=== PATIENT | female | born 1955 | race Caucasian/White ===

== ENCOUNTER 2017-03-09 07:03 | Day surgery (SDC) | payer OTHER, MEDICARE ==
[~2017-03-09 07:03] MED LIST: Lactated Ringers 1,000 ML IV SCH; Lidocaine 1% 4 ML ONE; Lidocaine 1%/Sod Bicarbonate in NS 8.4% 1 ML Syringe PRN; Propofol 200 MG/20 ML SDV ONE; Sodium Chloride 0.9% 10 ML Syringe FLUSH PRN; fentaNYL 100 MCG/2 ML SDV ONE
[2017-03-09] MEDS ORDERED: Midazolam 1 MG/ML 2 ML SDV ONE ×2 (07:04→08:17)
--- NOTE | 2017-03-09 07:18 | PCM.PREANE ---
Preanesthetic Assessment - Anesthesia/Transfusion/Family Hx Anesthesia History: Prior Anesthesia Reaction Type of Anesthesia Reaction: Excessive Nausea/Vomiting Family History of Anesthesia Reaction: No Transfusion History: No Prior Transfusion(s) Intubation History: Unknown - Review of Systems General: Fever (low grade fever noted per patient for months), Weakness, Fatigue , Malaise, Appetite (loss of appetite and weight loss noted) Pulmonary: No Symptoms (smokes 1pack/day times 38 years.) Cardiovascular: No Symptoms (atherosclerosis, epigastric pain noted in the past. ) Gastrointestinal: No symptoms (history of gastritis), Decreased appetite Neurological: No Symptoms (fibromyalgia), Headache (migraines noted) Other: Reports: None (history of back pain), Easy Bruising, Diabetes ( borderline DM, on no meds at this time.), Sinus Problem, Neck Pain, Depression, Anxiety - Physical Assessment NPO Status Date: 03/08/17 NPO Status Time: 20:30 Pulse: 103 O2 Sat by Pulse Oximetry: 93 Respiratory Rate: 18 Blood Pressure: 115/50 Temperature: 36.0 C Height: 1.73 m Weight: 59 kg ASA Class: 2 Mental Status: Alert & Oriented x3 Airway Class: Mallampati = 2 Dentition: Reports: Normal Dentition, [place](s), [place] Thyro-Mental Finger Breadths: 3 Mouth Opening Finger Breadths: 3 ROM/Head Extension: Full Lungs: Clear to auscultation, Normal respiratory effort Cardiovascular: Regular Rate, Regular Rhythm, No Murmurs - Imaging/EKG Impressions: Unremarkable stress test noted on 02/19/2017 - Allergies Allergies/Adverse Reactions: Allergies Allergy/AdvReac Type Severity Reaction Status Date / Time chlorpheniramine Allergy Cannot Verified 03/08/17 14:22 [From CapCof] Remember clindamycin Allergy Hives Verified 03/08/17 14:22 codeine Allergy Itching Verified 03/08/17 14:22 erythromycin base Allergy Itching Verified 03/08/17 14:22 Iodinated Contrast- Oral and Allergy Hives Verified 03/08/17 14:22 IV Dye [Iodinated Contrast Media - IV Dye] peanut Allergy Redness Verified 03/08/17 14:22 penicillin Allergy Hives Verified 03/08/17 14:22 phenylephrine [From [employer]Cof] Allergy Cannot Verified 03/08/17 14:22 Remember poppyseed oil Allergy Swollen Verified 03/08/17 14:22 Tongue - Anesthesia Plan Pre-Op Medication Ordered: None - Acknowledgements Anesthesia Type Planned: MAC Pt an Appropriate Candidate for the Planned Anesthesia: Yes Alternatives and Risks of Anesthesia Discussed w Pt/Guardian: Yes Pt/Guardian Understands and Agrees with Anesthesia Plan: Yes PreAnesthesia Questionnaire HEENT History: Reports: Other (See Below) Other HEENT History: dry eyes Cardiovascular History: Reports: Other (See Below) Other Cardiovascular History: athersclerosis, atypical chest pain Respiratory History: Reports: Other (See Below) Other Respiratory History: dyspnea Gastrointestinal History: Reports: Hiatal Hernia, Other (See Below) Other Gastrointestinal History: gastric pain, R groin pain, liver cyst, post op nausea and vomiting 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: Musculoskeletal History: Reports: Arthritis, Fibromyalgia, Osteoarthritis, Other (See Below) Other Musculoskeletal History: bulging disc, lumbar radiculopathy Neurological History: Reports: None Psychiatric History: Reports: Anxiety, Depression Endocrine/Metabolic History: Reports: Other (See Below) Other Endocrine/Metabolic History: borderline diabetic Hematologic History: Reports: None Immunologic History: Reports: None Oncologic (Cancer) History: Reports: None Dermatologic History: Reports: None - Infectious Disease History Infectious Disease History: Reports: Chicken Pox, Measles, Mumps, Shingles - Past Surgical History Head Surgeries/Procedures: HEENT Surgical History: Reports: Cataract Surgery, Naso-Sinus Surgery GI Surgical History: Reports: Appendectomy, Cholecystectomy, Colonoscopy, EGD, Hernia Repair/Other Female Surgical History: Reports: Section, Hysterectomy, Oophorectomy Neurological Surgical History: Reports: None Musculoskeletal Surgical History: Reports: Knee Replacement Dermatological Surgical History: Reports: None - SUBSTANCE USE Smoking Status *Q: Current Every Day Smoker Tobacco Use Within Last Twelve Months: Cigarettes Days Per Week of Alcohol Use: 0 Number of Drinks Per Day: 0 Total Drinks Per Week: 0 Recreational Drug Use History: No - HOME MEDS Home Medications: Home Meds Diazepam [Valium] 5 mg PO BID 03/18/15 [History] Hydrocodone/Acetaminophen [Lortab 5-325 mg Tablet] 1 tab PO DAILY 07/31/15 [ History] traZODone 100 mg PO DAILY 07/31/15 [History] Polymyxin B/Trimethoprim [PolyTrim Ophth Soln] 1 - 2 drop EYELF QID #1 bottle [Rx] Escitalopram Oxalate [Lexapro] 5 mg PO DAILY 08/09/16 [History] - CURRENT (IN HOUSE) MEDS Current Meds: Current Medications Lactated Ringer's (Ringers, Lactated) 1,000 mls @ 125 mls/hr IV ASDIRECTED PAL Stop: 03/09/17 23:00 Lidocaine/Sodium Bicarbonate (Buffered Lidocaine 1% In Ns 8.4%) 0.25 ml .XX ONETIME PRN PRN Reason: Prior to IV Start Stop: 03/09/17 18:00 Sodium Chloride (Saline Flush) 10 ml FLUSH ASDIRECTED PRN PRN Reason: Keep Vein Open Stop: 03/09/17 18:00 Discontinued Medications Fentanyl (Sublimaze) Confirm Administered Dose 100 mcg .ROUTE .STK-MED ONE Stop: 03/09/17 07:04 Lidocaine HCl (Xylocaine-Mpf 1%) Confirm Administered Dose 4 mls @ as directed .ROUTE .STK-MED ONE Stop: 03/09/17 07:04 Midazolam HCl (Versed 1 Mg/Ml) Confirm Administered Dose 2 mg .ROUTE .STK-MED ONE Stop: 03/09/17 07:05 Propofol (Diprivan 20 Ml) Confirm Administered Dose 200 mg .ROUTE .STK-MED ONE Stop: 03/09/17 07:04
[2017-03-09] MEDS ORDERED: Ondansetron 4 MG/2 ML SDV IVPUSH PRN (07:59)
--- NOTE | 2017-03-09 08:48 | PCM48HPAN ---
Post Anesthesia Note - EVALUATION WITHIN 48HRS OF ANESTHETIC Vital Signs in Normal Range: Yes Patient Participated in Evaluation: Yes Respiratory Function Stable: Yes Airway Patent: Yes Cardiovascular Function Stable: Yes Hydration Status Stable: Yes Pain Control Satisfactory: Yes Nausea and Vomiting Control Satisfactory: Yes Mental Status Recovered: Yes
[2017-03-09 08:51] VITALS: BP 90/54
--- NOTE | 2017-03-09 09:00 | PCM.OPNOTE ---
- General Post-Op/Procedure Note Date of Surgery/Procedure: 03/09/17 Operative Procedure(s): Diagnostic EGD with cold forceps biopsy, diagnostic colonoscopy with cold forceps polypectomy Pre Op Diagnosis: Abdominal pain, bloating, history of incomplete colonoscopy Post-Op Diagnosis: Gastritis, diverticulosis, colon polyp Anesthesia Technique: MAC Primary Surgeon: Peace Bolden Anesthesia Provider: Bita Cam Pathology: 1. Small bowel biopsy 2. Antral biopsy 3. Distal esophageal biopsy 4. Ascending colon polyp Fluid Replacement, Intraop: 700 (mL crystalloid ) EBL in mLs: 1 Complications: None Condition: Good Free Text/Narrative:: INDICATION FOR PROCEDURE: The patient is a 61-year-old woman who was referred to me by Donell Sal PA-C for evaluation for abdominal pain. She does have a history of incomplete colonoscopy. Performing a colonoscopy and EGD and the associated risks of the procedures had been discussed with the patient. The patient found these risks acceptable and agreed to proceed. DESCRIPTION OF PROCEDURE: The patient was taken to the operating room and placed in the left lateral decubitus position. After induction of adequate sedation, a bite block was placed. A standard Olympus gastroscope was inserted into the oropharynx and guided down the esophagus without difficulty. The gastroesophageal junction was appreciated at 38 cm from the teeth. There was no evidence of stricture or esophageal ulcerations. The scope was advanced into the stomach, and there was gastritis. The scope was passed into the proximal jejunum and the duodenum which were unremarkable. There were no petechiae or ulcerations. The proximal jejunum was grossly normal in appearance. Multiple cold forceps biopsies were obtained of the proximal jejunum and duodenum. The scope was withdrawn into the antrum, and additional cold forceps biopsies were obtained. The remainder of the gastric body was examined, and there were no other abnormalities. The scope was retroflexed, and there was no evidence of hiatal hernia. The scope was straightened and withdrawn to the GE junction. Additional cold forceps biopsies were obtained of the distal esophagus. The scope was withdrawn through the remainder of the esophagus and no further abnormalities were noted. The posterior oropharynx was grossly normal in appearance. The scope was fully withdrawn and attention was then turned to the colonoscopy. A digital rectal exam was performed which was unremarkable. An adult Olympus colonoscope was inserted into the rectum and guided under direct visualization to the appendiceal orifice and ileocecal valve. The scope was then slowly withdrawn through the colon. The quality of the prep was good. There was no evidence of angiodysplasias. There was a small sessile polyp in the ascending colon. It was removed using cold forceps. There was sigmoid diverticulosis, it was moderate. The scope was withdrawn into the rectum and retroflexed. There was no significant prominence of the patient's internal hemorrhoids. The scope was straightened, the colon was desufflated, and the scope was withdrawn. The patient was awakened from sedation and transferred to the recovery room in stable condition having tolerated the procedure well. POSTOPERATIVE PLAN: I discussed with the patient my intraoperative findings and recommendations. The patient will follow up in approximately 7-10 days to discuss pathology and how their symptoms are progressing. The patient is to continue Protonix and Carafate. I have asked the patient to follow a GERD\ gastritis diet. The patient is to call with any worsening of symptoms or questions prior to the appointment.
== END 2017-03-09 09:30 | disposition home or self-care (01) ==
LOC: JD.SDS 07:03
PROVIDERS: ATTEND Surgery
DX: K29.50 Unspecified chronic gastritis without bleeding (principal); D12.2 Benign neoplasm of ascending colon; K20.9 Esophagitis, unspecified; I25.10 Atherosclerotic heart disease of native coronary artery without angina pectoris; Z98.890 Other specified postprocedural states; F41.9 Anxiety disorder, unspecified; Z88.0 Allergy status to penicillin; Z88.1 Allergy status to other antibiotic agents; Z88.8 Allergy status to other drugs, medicaments and biological substances; Z91.010 Allergy to peanuts; Z91.041 Radiographic dye allergy status; F17.210 Nicotine dependence, cigarettes, uncomplicated; Z79.899 Other long term (current) drug therapy; Z72.0 Tobacco use; Z90.49 Acquired absence of other specified parts of digestive tract; E11.9 Type 2 diabetes mellitus without complications
CPT/HCPCS: 43239; 45380; 88305; J2250; J3010; J7120; 00810; J2704

== ENCOUNTER 2018-09-08 12:08 | Emergency (ER) | payer OTHER, MEDICARE ==
[2018-09-08 12:21] VITALS: BP 154/89
[2018-09-08] MEDS ORDERED: Lactated Ringers 500 ML IV ONE (12:25)
--- NOTE | 2018-09-08 12:56 | EDM.PDOC ---
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 She rinsed her eye out but she still has some burning and her vision is blurry. She does not wear glasses or contacts. Onset: Sudden Duration: Minutes: Location: Reports: Other (Left eye) Quality: Reports: Burning Severity: Moderate Improves with: Reports: None Worsens with: Reports: None Associated Symptoms: Reports: No Other Symptoms Left Eye Pain Score (Numeric/FACES): 8 - Related Data Allergies Allergy/AdvReac Type Severity Reaction Status Date / Time chlorpheniramine Allergy Cannot Verified 09/08/18 12:16 [From CapCof] Remember clindamycin Allergy Hives Verified 09/08/18 12:16 codeine Allergy Itching Verified 09/08/18 12:16 erythromycin base Allergy Itching Verified 09/08/18 12:16 Iodinated Contrast- Oral and Allergy Hives Verified 09/08/18 12:16 IV Dye [Iodinated Contrast Media - IV Dye] peanut Allergy Redness Verified 09/08/18 12:16 penicillin Allergy Hives Verified 09/08/18 12:16 phenylephrine [From [employer]Cof] Allergy Cannot Verified 09/08/18 12:16 Remember poppyseed oil Allergy Swollen Verified 09/08/18 12:16 Tongue Home Meds: Home Meds Diazepam [Valium] 5 mg PO BID 03/18/15 [History] Hydrocodone/Acetaminophen [Lortab 5-325 mg Tablet] 1 tab PO DAILY 07/31/15 [ History] traZODone 100 mg PO DAILY 07/31/15 [History] Polymyxin B/Trimethoprim [PolyTrim Ophth Soln] 1 - 2 drop EYELF QID #1 bottle [Rx] Escitalopram Oxalate [Lexapro] 5 mg PO DAILY 08/09/16 [History] Orphenadrine [Norflex] 100 mg PO DAILY PRN 03/09/17 [History] Past Medical History HEENT History: Reports: Other (See Below) Other HEENT History: dry eyes Cardiovascular History: Reports: Other (See Below) Other Cardiovascular History: athersclerosis, atypical chest pain Respiratory History: Reports: Other (See Below) Other Respiratory History: dyspnea Gastrointestinal History: Reports: Hiatal Hernia, Other (See Below) Other Gastrointestinal History: gastric pain, R groin pain, liver cyst, post op nausea and vomiting 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: Musculoskeletal History: Reports: Arthritis, Fibromyalgia, Osteoarthritis, Other (See Below) Other Musculoskeletal History: bulging disc, lumbar radiculopathy Neurological History: Reports: None Psychiatric History: Reports: Anxiety, Depression Endocrine/Metabolic History: Reports: Other (See Below) Other Endocrine/Metabolic History: borderline diabetic Hematologic History: Reports: None Immunologic History: Reports: None Oncologic (Cancer) History: Reports: None Dermatologic History: Reports: None - Infectious Disease History Infectious Disease History: Reports: Chicken Pox, Measles, Mumps, Shingles - Past Surgical History HEENT Surgical History: Reports: Cataract Surgery, Naso-Sinus Surgery GI Surgical History: Reports: Appendectomy, Cholecystectomy, Colonoscopy, EGD, Hernia Repair/Other Female Surgical History: Reports: Section, Hysterectomy, Oophorectomy Neurological Surgical History: Reports: None Musculoskeletal Surgical History: Reports: Knee Replacement Dermatological Surgical History: Reports: None Social & Family History - Family History Family Medical History: Noncontributory - Tobacco Use Smoking Status *Q: Unknown Ever Smoked - Caffeine Use Caffeine Use: Reports: Coffee ED ROS GENERAL - Review of Systems Review Of Systems: See Below Constitutional: Reports: No Symptoms HEENT: Reports: Eye Pain (Burning of her left eye and blurred vision) Respiratory: Reports: No Symptoms Cardiovascular: Reports: No Symptoms Endocrine: Reports: No Symptoms GI/Abdominal: Reports: No Symptoms : Reports: No Symptoms Musculoskeletal: Reports: No Symptoms ED EXAM GENERAL W FULL EYE - Physical Exam Exam: See Below Exam Limited By: No Limitations General Appearance: Alert, No Apparent Distress Eye Exam: Left Eye: Conjunctival Injection, Bilateral Eye: EOMI, PERRL Conjunctiva & Sclera: Left: Discharge Pupillary Reaction: Bilateral: Brisk Respiratory/Chest: No Respiratory Distress Course - Vital Signs Last Recorded V/S: Last Vital Signs Temp 98.2 F 09/08/18 12:19 Pulse 99 01/10/19 12:19 Resp 18 09/08/18 12:19 BP 154/89 H 09/08/18 12:19 Pulse Ox 99 09/08/18 12:19 - Orders/Labs/Meds Orders: Active Orders 24 hr Category Date Time Status Lactated Ringers [Ringers, Lactated] 500 ml Med 09/08/18 12:25 Active IV .BOLUS Medication Orders Lactated Ringer's (Ringers, Lactated) 500 mls @ 500 mls/hr IV .BOLUS ONE Stop: 09/08/18 13:24 Last Admin: 09/08/18 12:33 Dose: 500 mls/hr Meds: Medications Generic Name Dose Route Start Last Admin Trade Name Dago PRN Reason Stop Dose Admin Lactated Ringer's 500 mls @ 500 mls/hr 09/08/18 12:25 09/08/18 12:33 Ringers, Lactated IV 09/08/18 13:24 500 mls/hr .BOLUS ONE Administration - Re-Assessments/Exams Free Text/Narrative Re-Assessment/Exam: 09/08/18 13:05 I ordered LR 500ml bolus through the vic lens. She felt better after that. The PH of her tears was 7. I then gave her some proparacein and put flurress in her eye. I did not see any abrasion or burn to the cornea. I called poison control and they would do nothing different. I will discharge her home. Departure - Departure Time of Disposition: 13:10 Disposition: Home, Self-Care 01 Condition: Good Clinical Impression: Chemical burn of eye - Discharge Information *PRESCRIPTION DRUG MONITORING PROGRAM REVIEWED*: No *COPY OF PRESCRIPTION DRUG MONITORING REPORT IN PATIENT ROLAND: No Referrals: Aminata Ricardo, [employer] [Primary Care Provider] - Forms: ED Department Discharge Additional Instructions: Take tylenol or motrin for pain. If you do not get better in a few days or if you get worse follow up with us of one of the optometrists in [facility]. - My Orders Last 24 Hours: My Active Orders 09/08/18 12:25 Lactated Ringers [Ringers, Lactated] 500 ml IV .BOLUS - Assessment/Plan Last 24 Hours: My Active Orders 09/08/18 12:25 Lactated Ringers [Ringers, Lactated] 500 ml IV .BOLUS
== END 2018-09-08 13:20 | disposition home or self-care (01) ==
LOC: JD.ED 12:08
DX: T65.891A Toxic effect of other specified substances, accidental (unintentional), initial encounter (principal); T26.92XA Corrosion of left eye and adnexa, part unspecified, initial encounter; F41.9 Anxiety disorder, unspecified; F32.9 Major depressive disorder, single episode, unspecified; Z88.5 Allergy status to narcotic agent; Z88.1 Allergy status to other antibiotic agents; Z79.899 Other long term (current) drug therapy; Z88.8 Allergy status to other drugs, medicaments and biological substances; Y92.002 Bathroom of unspecified non-institutional (private) residence as the place of occurrence of the external cause
CPT/HCPCS: 99283; J7120; 65220

== ENCOUNTER 2018-11-08 16:03 | Emergency (ER) | payer OTHER, MEDICARE ==
[2018-11-08 16:25] VITALS: BP 146/74
--- NOTE | 2018-11-08 16:45 | EDM.PDOCBH ---
ED HPI GENERAL MEDICAL PROBLEM - General Chief Complaint: Behavioral/Psych Stated Complaint: PANIC ATTACK Time Seen by Provider: 11/08/18 16:28 Source of Information: Reports: Patient, RN Notes Reviewed History Limitations: Reports: No Limitations - History of Present Illness INITIAL COMMENTS - FREE TEXT/NARRATIVE: Patient is a 63-year-old female who presents to the ED for the evaluation of anxiety like symptoms. She states that she has a history of anxiety and was on diazepam for this. She states that around 3 weeks ago the pharmacy and her primary care providers cut her off from the diazepam as she also takes oxycodone for back pain they were worried about the additive effects and that she might be too sedated with this. They did not provide her with an alternative. She states that she feels some of the similar symptoms that she has had previous with her anxiety. She feels that her insides are racing, her heart is racing. She says that she has increased stress as of late due to taking care of her mother who has Alzheimer's and dementia. She states that she makes meals for her regularly and has to take them to her and this causes stress. She also notes that her had shoulder surgery so she is taking care of him as well. She states that she takes 20 mg Lexapro daily and trazodone for sleep, she takes Percocet 06/01/25 for her chronic back pain she states that she may take up to 4 tabs daily but tries not to do this. He also states that she has extensive back pain/surgery history. She notes that her pain doctor in [place] has written a note to her primary care provider stating that she does need the diazepam for her anxiety symptoms however her primary care provider is still will not provide her with this as they feel it will be too sedating for her. She notes that she sees Kermit Ricardo and Donell Sal. She further denies any chest pain but has some mild shortness of breath symptoms. Bilateral Lower Back Pain Score (Numeric/FACES): 5 - Related Data Allergies Allergy/AdvReac Type Severity Reaction Status Date / Time chlorpheniramine Allergy Cannot Verified 09/08/18 12:16 [From [employer]] Remember clindamycin Allergy Hives Verified 09/08/18 12:16 codeine Allergy Itching Verified 09/08/18 12:16 erythromycin base Allergy Itching Verified 09/08/18 12:16 Iodinated Contrast- Oral and Allergy Hives Verified 09/08/18 12:16 IV Dye [Iodinated Contrast Media - IV Dye] peanut Allergy Redness Verified 09/08/18 12:16 penicillin Allergy Hives Verified 09/08/18 12:16 phenylephrine [From [employer]] Allergy Cannot Verified 09/08/18 12:16 Remember poppyseed oil Allergy Swollen Verified 09/08/18 12:16 Tongue Home Meds: Home Meds Hydrocodone/Acetaminophen [Lortab 5-325 mg Tablet] 1 tab PO DAILY 07/31/15 [ History] traZODone 100 mg PO DAILY 07/31/15 [History] Escitalopram Oxalate [Lexapro] 20 mg PO DAILY 08/09/16 [History] LORazepam [Ativan] 0.5 mg PO Q8H PRN #20 tablet 11/08/18 [Rx] Past Medical History HEENT History: Reports: Other (See Below) Other HEENT History: dry eyes Cardiovascular History: Reports: Other (See Below) Other Cardiovascular History: athersclerosis, atypical chest pain Respiratory History: Reports: Other (See Below) Other Respiratory History: dyspnea Gastrointestinal History: Reports: Hiatal Hernia, Other (See Below) Other Gastrointestinal History: gastric pain, R groin pain, liver cyst, post op nausea and 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: Musculoskeletal History: Reports: Arthritis, Fibromyalgia, Osteoarthritis, Other (See Below) Other Musculoskeletal History: bulging disc, lumbar radiculopathy Neurological History: Reports: None Psychiatric History: Reports: Anxiety, Depression Endocrine/Metabolic History: Reports: Other (See Below) Other Endocrine/Metabolic History: borderline diabetic Hematologic History: Reports: None Immunologic History: Reports: None Oncologic (Cancer) History: Reports: None Dermatologic History: Reports: None - Infectious Disease History Infectious Disease History: Reports: Chicken Pox, Measles, Mumps, Shingles - Past Surgical History HEENT Surgical History: Reports: Cataract Surgery, Naso-Sinus Surgery GI Surgical History: Reports: Appendectomy, Cholecystectomy, Colonoscopy, EGD, Hernia Repair/Other Female Surgical History: Reports: Section, Hysterectomy, Oophorectomy Neurological Surgical History: Reports: None Musculoskeletal Surgical History: Reports: Knee Replacement Dermatological Surgical History: Reports: None Social & Family History - Family History Family Medical History: Noncontributory - Caffeine Use Caffeine Use: Reports: Coffee ED ROS GENERAL - Review of Systems Review Of Systems: See Below Constitutional: Reports: No Symptoms HEENT: Reports: No Symptoms Respiratory: Reports: Shortness of Breath Cardiovascular: Reports: Palpitations. Denies: Chest Pain, Blood Pressure Problem Endocrine: Reports: No Symptoms GI/Abdominal: Reports: Diarrhea (She states that she gets diarrhea when she has anxiety attacks and is stressed out as she is.) : Reports: No Symptoms Musculoskeletal: Reports: No Symptoms Skin: Reports: No Symptoms Neurological: Denies: Dizziness, Headache, Numbness, Tingling Psychiatric: Reports: Anxiety. Denies: Depression Hematologic/Lymphatic: Reports: No Symptoms Immunologic: Reports: No Symptoms ED EXAM, BEHAVIORAL HEALTH - Physical Exam Exam: See Below Exam Limited By: No Limitations General Appearance: Alert, WD/WN, No Apparent Distress, Anxious Eye Exam: Bilateral Eye: EOMI, Normal Inspection Ears: Normal External Exam Nose: Normal Inspection Throat/Mouth: Normal Inspection, Normal Oropharynx, No Airway Compromise Head: Atraumatic, Normocephalic Neck: Normal Inspection Respiratory/Chest: No Respiratory Distress, Lungs Clear, Normal Breath Sounds, No Accessory Muscle Use, Chest Non-Tender Cardiovascular: Normal Peripheral Pulses, Regular Rate, Rhythm, No Murmur Extremities: Normal Inspection, Normal Capillary Refill Neurological: Alert, Normal Mood/Affect, Normal Cognition, Normal Gait, Normal Reflexes, No Motor/Sensory Deficits, Oriented x 3 Psychiatric: Alert, Normal Affect, Normal Cognition, Normal Mood, Oriented Skin Exam: Warm, Dry, Intact, Normal color, No rash COURSE, BEHAVIORAL HEALTH COMP - Course Vital Signs: Last Vital Signs Temp 98 F 11/08/18 16:21 Pulse 94 11/08/18 16:21 Resp 16 11/08/18 16:21 BP 146/74 H 11/08/18 16:21 Pulse Ox 98 11/08/18 16:21 Discharge vs Psych Eval/Treatment:: 11/08/18 17:51 Patient presents to the ED today for general anxiety symptoms. She states that her primary care providers will not provide her with diazepam, she is not seeking diazepam at this time she understands there thought process but is wanting to know what else she may do for her anxiety. I did talk this over with her at a length and she states that she feels better after having talked to someone about her anxiety symptoms. I did suggest the need for possible counselor sessions as this might help also to provide her some relief, she was agreeable to this and will try to hit in with a counselor. I did discuss the patient's case with Dr. Littlejohn and he stated that Ativan may be a better drug choice for her as this has only a 6 hour half-life as opposed to the diazepam's 96 hour half-life. He states that the Ativan is better for acute attack type symptoms. I did provide the patient with a prescription for 20 tablets of Ativan as she states that her primary care providers are not in the office for around 2 weeks. Take one half to one full tablet as needed every 8 hours for symptoms of anxiety. I did also suggest that she have her primary care providers up her dose of Lexapro to see if this doesn't provide further relief. Lakeisha Luna NP suggested the use of Valerian root as an herbal or nonpharmacological supplement see if this doesn't provide her some anxiety relief. I did present information to the patient and she was willing to try this, she states that she will get some of this at the pharmacy as well. It is apparent to me that this patient does suffer from acute anxiety, and she does take oxycodone for back pain however I feel that Ativan is a more suitable choice for her breakthrough anxiety symptoms. Departure - Departure Time of Disposition: 17:32 Disposition: Home, Self-Care 01 Condition: Fair Clinical Impression: Anxiety - Discharge Information *PRESCRIPTION DRUG MONITORING PROGRAM REVIEWED*: No *COPY OF PRESCRIPTION DRUG MONITORING REPORT IN PATIENT ROLAND: No Prescriptions: LORazepam [Ativan] 0.5 mg PO Q8H PRN #20 tablet PRN Reason: Anxiety Instructions: Panic Attack, [id number] Referrals: Aminata Ricardo NP [Primary Care Provider] - Forms: ED Department Discharge Additional Instructions: You have been evaluated in the ED today for your anxiety-like symptoms. You have been provided with prescription for Ativan please take one half tablet to one full tablet every 8 hours as needed for symptoms of anxiety. This prescription has been electronic was sent to [facility] located near [facility]. You may also want to try an herbal supplement called valerian root as this might help provide you with some relief from your anxiety on a non- pharmacological basis. Recommend that you talk with your primary care doctor about increasing your Lexapro dosage to see if this also doesn't provide further anxiety relief. Please return to the ED if her symptoms change or worsen.
== END 2018-11-08 17:39 | disposition home or self-care (01) ==
LOC: JD.ED 16:03
DX: F41.9 Anxiety disorder, unspecified (principal); Z88.8 Allergy status to other drugs, medicaments and biological substances; Z79.899 Other long term (current) drug therapy
CPT/HCPCS: 99283

== ENCOUNTER 2020-03-18 09:57 | Inpatient (IN) | payer OTHER, MEDICARE ==
[~2020-03-18 09:57] MED LIST changes: +Acetaminophen 325 MG Tab PO SCH; +Bisacodyl 5 MG Tab PO PRN; -Lidocaine 1% 4 ML ONE; +Lidocaine 1%/Sod Bicarbonate in NS 8.4% 1 ML Syringe IDERM PRN; -Lidocaine 1%/Sod Bicarbonate in NS 8.4% 1 ML Syringe PRN; +Magnesium Hydroxide 400 MG/5 ML Susp 30 ML Cup PO PRN; +Morphine 2 MG/ML SYRINGE IVPUSH PRN; +Naloxone 0.4 MG/ML SDV IVPUSH PRN; +Ondansetron 4 MG/2 ML SDV IVPUSH PRN; +Pregabalin 25 MG Cap PO SCH; -Propofol 200 MG/20 ML SDV ONE; +Sennosides 8.6 MG Tab PO PRN; -fentaNYL 100 MCG/2 ML SDV ONE; +oxyCODONE ER 10 MG TAB.ER PO SCH
[2020-03-18] MEDS ORDERED: Scopolamine 1.5 MG Transdermal Patch TOP SCH (10:00)
--- NOTE | 2020-03-18 10:16 | PCM.CONS ---
H&P History of Present Illness - General Date of Service: 03/18/20 Admit Problem/Dx: Admission Diagnosis/Problem Admission Diagnosis/Problem Osteoarthritis of knee Source of Information: Patient, Old Records, Provider, RN, RN Notes Reviewed History Limitations: Reports: No Limitations - History of Present Illness Initial Comments - Free Text/Narative: Teetee Fajardo is a 64 yo female patient of Dr. Roca who is post-operative day 0 of left TKA. Hospital medicine was consulted for post-operative medical care of the following listed medical conditions. At this time she is resting comfortably in bed. Pain is controlled. She denies any chest pain, shortness of breath, palpitations, nausea, or vomiting. She carries a history of: Post- operative nausea and vomiting, Anxiety, Chronic low back pain, Depression, Leukocytosis, GERD, Eczema, Pulmonary nodule, Atrial hypertrophy, ANGELA - untreated, Osteoporosis, hiatal hernia, fibromyalgia, lumbar radiculopathy. She is a current daily smoker. She is a full code. Her primary care provider is Daisy Ann PA-C. Left Knee Pain Score (Numeric/FACES): 6 - Related Data Allergies/Adverse Reactions: Allergies Allergy/AdvReac Type Severity Reaction Status Date / Time chlorpheniramine Allergy Cannot Verified 03/15/20 14:29 [From [employer]] Remember clindamycin Allergy Hives Verified 03/15/20 14:29 codeine Allergy Itching Verified 03/15/20 14:29 erythromycin base Allergy Itching Verified 03/15/20 14:29 Iodinated Contrast Media Allergy Hives Verified 03/15/20 14:29 [Iodinated Contrast Media - IV Dye] peanut Allergy Redness Verified 03/15/20 14:29 penicillin Allergy Hives Verified 03/15/20 14:29 phenylephrine [From [employer]] Allergy Cannot Verified 03/15/20 14:29 Remember poppyseed oil Allergy Swollen Verified 03/15/20 14:29 Tongue Home Medications: Home Meds traZODone 100 mg PO BEDTIME 07/31/15 [History] Cholecalciferol (Vitamin D3) [Vitamin D3] 5,000 unit PO DAILY 03/15/20 [History] EPINEPHrine [Epipen] 1 dose IM ONETIME PRN 03/15/20 [History] Escitalopram Oxalate 30 mg PO DAILY 03/15/20 [History] LORazepam [Ativan] 1 mg PO QAM 03/15/20 [History] LORazepam [Lorazepam] 0.5 mg PO QPM 03/15/20 [History] oxyCODONE HCl/Acetaminophen [Oxycodone-Acetaminophen 5-325] 1 tab PO Q6H 03/15/20 [History] Past Medical History HEENT History: Reports: Impaired Vision, Sinusitis, Other (See Below) Other HEENT History: sinusitis Cardiovascular History: Reports: Other (See Below) Other Cardiovascular History: athersclerosis, atypical chest pain Respiratory History: Reports: Other (See Below) Other Respiratory History: dyspnea Gastrointestinal History: Reports: GERD, Hiatal Hernia, Other (See Below) Other Gastrointestinal History: gastric pain, R groin pain, liver cyst, post op nausea and vomiting Genitourinary History: Reports: Other (See Below) Other Genitourinary History: yeast infection, pelvic fullness 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: Musculoskeletal History: Reports: Arthritis, Fibromyalgia, Osteoarthritis, Other (See Below) Other Musculoskeletal History: bulging disc, lumbar radiculopathy, calf pain, l ow back pain, trigger thumb, scolosis, right should pain, arthritis, joint pain Neurological History: Reports: None, Other (See Below) Psychiatric History: Reports: Anxiety, Depression Endocrine/Metabolic History: Reports: Other (See Below) Other Endocrine/Metabolic History: borderline diabetic Hematologic History: Reports: None Immunologic History: Reports: None Oncologic (Cancer) History: Reports: None Dermatologic History: Reports: None - Infectious Disease History Infectious Disease History: Reports: Chicken Pox, Measles, Mumps, Shingles - Past Surgical History Head Surgeries/Procedures: Reports: None HEENT Surgical History: Reports: Cataract Surgery, Naso-Sinus Surgery, Tonsillectomy Cardiovascular Surgical History: Reports: None Respiratory Surgical History: Reports: None GI Surgical History: Reports: Appendectomy, Bariatric Procedure, Cholecystectomy, Colonoscopy, EGD, Hernia Repair/Other Female Surgical History: Reports: Section, Hysterectomy, Oophorectomy Male Surgical History: Reports: None Neurological Surgical History: Reports: Other (See Below) Other Neurological Surgeries/Procedures: intraspinal surgery Musculoskeletal Surgical History: Reports: Knee Replacement, Other (See Below) Other Musculoskeletal Surgeries/Procedures:: multiple knee surgeries. Oncologic Surgical History: Reports: None Dermatological Surgical History: Reports: None Social & Family History - Family History Family Medical History: Noncontributory - Tobacco Use Smoking Status *Q: Current Every Day Smoker Years of Tobacco use: 35 Packs/Tins Daily: 0.5 - Caffeine Use Caffeine Use: Reports: Coffee - Recreational Drug Use Recreational Drug Use: No Drug Use in Last 12 Months: No H&P Review of Systems - Review of Systems: Review Of Systems: See Below General: Reports: No Symptoms. Denies: Fever, Chills HEENT: Reports: No Symptoms. Denies: Headaches, Sore Throat Pulmonary: Reports: No Symptoms. Denies: Shortness of Breath, Wheezing, Pleuritic Chest Pain, Cough, Sputum Cardiovascular: Reports: No Symptoms. Denies: Chest Pain, Palpitations, Dyspnea on Exertion Gastrointestinal: Reports: No Symptoms. Denies: Abdominal Pain, Constipation, Diarrhea, Nausea, Vomiting Genitourinary: Reports: No Symptoms. Denies: Pain Musculoskeletal: Reports: Leg Pain Skin: Reports: No Symptoms. Denies: Cyanosis Psychiatric: Reports: No Symptoms. Denies: Confusion Neurological: Reports: Numbness, Tingling, Difficulty Walking, Gait Disturbance Hematologic/Lymphatic: Reports: No Symptoms Immunologic: Reports: No Symptoms Exam - Exam Exam: See Below - Exam Quality Assessment: Supplemental Oxygen, DVT Prophylaxis. No: Urinary Catheter General: Alert, Oriented, Cooperative. No: Mild Distress HEENT: Conjunctiva Clear, EACs Clear, Mucosa Moist & [place], Posterior Pharynx Clear, PERRLA Neck: Supple, Trachea Midline Lungs: Clear to Auscultation, Normal Respiratory Effort Cardiovascular: Regular Rate, Regular Rhythm GI/Abdominal Exam: Normal Bowel Sounds, Soft, Non-Tender, No Distention (Female) Exam: Deferred Rectal (Female) Exam: Deferred Extremities: Normal Capillary Refill, Leg Pain, Limited Range of Motion, Other (Bandage in place on left leg. Bandage is dry and intact. Cooling pack in place. ) Peripheral Pulses: 2+: Radial (L), Radial (R), Dorsalis Pedis (L), Dorsalis Pedis (R) Skin: Warm, Dry, Intact Neurological: Cranial Nerves Intact (Grossly ) Neuro Extensive - Mental Status: Alert, Oriented x3, Normal Mood/Affect Sepsis Event Note - Focused Exam Date Exam was Performed: 03/18/20 Time Exam was Performed: 15:21 Consult PN Assessment/Plan POD#: 0 Procedures: Procedures ANTINUCLEAR ANTIBODIES (05/02/19) ASSAY OF CREATININE (01/20/18) ASSAY OF LIPASE (03/18/15) ASSAY OF PREALBUMIN (03/04/20) ASSAY THYROID STIM HORMONE (06/29/16) BONE IMAGING 3 PHASE (11/14/19) C DIFF AMPLIFIED PROBE (03/19/15) C-REACTIVE PROTEIN (05/05/17) CARDIOVASCULAR STRESS TEST (03/12/20) CCP ANTIBODY (05/02/19) COLONOSCOPY AND BIOPSY (03/09/17) COMPLETE CBC AUTOMATED (06/29/16) COMPLETE CBC W/AUTO DIFF WBC (03/04/20) COMPREHEN METABOLIC PANEL (03/04/20) CT ABD & PELVIS W/O CONTRAST (12/29/16) CT THORAX W/O DYE (11/30/16) CULTURE SCREEN ONLY (11/04/15) DXA BONE DENSITY AXIAL (03/05/20) ECHO EXAM OF ABDOMEN (03/05/20) EGD BIOPSY SINGLE/MULTIPLE (03/09/17) EMERGENCY DEPT VISIT (11/08/18) EMERGENCY DEPT VISIT (08/09/16) EMERGENCY DEPT VISIT (01/23/16) EXTREMITY STUDY (01/03/18) GLYCOSYLATED HEMOGLOBIN TEST (03/05/20) HELICOBACTER PYLORI ANTIBODY (05/02/19) HT MUSCLE IMAGE SPECT MULT (03/12/20) HYDRATE IV INFUSION ADD-ON (03/18/15) HYDRATION IV INFUSION INIT (03/18/15) INFLUENZA ASSAY W/OPTIC (11/12/16) LIPID PANEL (06/29/16) METABOLIC PANEL TOTAL CA (02/13/16) MR-STAPH DNA AMP PROBE (02/28/20) MRI CHEST SPINE W/O DYE (12/02/16) MRI JNT OF LWR EXTRE W/O DYE (12/17/16) MRI JOINT UPR EXTREM W/O DYE (09/12/19) MRI LUMBAR SPINE W/O & W/DYE (01/20/18) MRI LUMBAR SPINE W/O DYE (05/16/19) POLYSOM 6/> YRS 4/> OUMOU (04/09/17) PROTHROMBIN TIME (03/04/20) RBC SED RATE AUTOMATED (02/13/16) RHEUMATOID FACTOR TEST QUAL (05/02/19) ROUTINE VENIPUNCTURE (03/05/20) STREP A AG IA (11/04/15) THROMBOPLASTIN TIME PARTIAL (03/04/20) TISSUE EXAM BY PATHOLOGIST (03/09/17) URINALYSIS AUTO W/SCOPE (03/04/20) VANOMYCIN DNA AMP PROBE (03/19/15) X-RAY EXAM CHEST 2 VIEWS (03/04/20) X-RAY EXAM HIP UNI 2-3 VIEWS (05/05/17) X-RAY EXAM L-2 SPINE 4/>VWS (12/04/16) X-RAY EXAM L-S SPINE 2/3 VWS (10/12/18) X-RAY EXAM NECK SPINE 2-3 VW (10/12/18) X-RAY EXAM OF PELVIS (12/04/16) X-RAY EXAM OF SHOULDER (08/14/19) X-RAY EXAM THORAC SPINE 2VWS (10/12/18) XCAPSL CTRC RMVL W/O ECP (08/15/15) (1) S/P total knee arthroplasty SNOMED Code(s): 9755678415657, 197498809, 7384140943272 Code(s): Z96.659 - PRESENCE OF UNSPECIFIED ARTIFICIAL KNEE JOINT Current Visit: Yes (2) Osteoarthritis SNOMED Code(s): 479268379 Code(s): M19.90 - UNSPECIFIED OSTEOARTHRITIS, UNSPECIFIED SITE Current Visit: Yes (3) History of postoperative nausea and vomiting SNOMED Code(s): 746893083, 851089983 Code(s): Z87.898 - PERSONAL HISTORY OF OTHER SPECIFIED CONDITIONS Current Visit: Yes (4) Chronic low back pain SNOMED Code(s): 520727015 Code(s): M54.5 - LOW BACK PAIN; G89.29 - OTHER CHRONIC PAIN Current Visit: Yes (5) Depression SNOMED Code(s): 43741853 Code(s): F32.9 - MAJOR DEPRESSIVE DISORDER, SINGLE EPISODE, UNSPECIFIED Current Visit: Yes (6) Leukocytosis SNOMED Code(s): 668790770, 918650333 Code(s): D72.829 - ELEVATED WHITE BLOOD CELL COUNT, UNSPECIFIED Current Visit: Yes (7) GERD (gastroesophageal reflux disease) SNOMED Code(s): 794229218 Code(s): K21.9 - GASTRO-ESOPHAGEAL REFLUX DISEASE WITHOUT ESOPHAGITIS Current Visit: Yes (8) Eczema SNOMED Code(s): 04919002 Code(s): L30.9 - DERMATITIS, UNSPECIFIED Current Visit: Yes (9) Pulmonary nodule SNOMED Code(s): 038504063 Code(s): R91.1 - SOLITARY PULMONARY NODULE Current Visit: Yes (10) Atrial hypertrophy SNOMED Code(s): 418671493 Code(s): I51.7 - CARDIOMEGALY Current Visit: Yes (11) ANGELA (obstructive sleep apnea) SNOMED Code(s): 96241107 Code(s): G47.33 - OBSTRUCTIVE SLEEP APNEA (ADULT) (PEDIATRIC) Current Visit: Yes (12) Osteoporosis SNOMED Code(s): 17768323 Code(s): M81.0 - AGE-RELATED OSTEOPOROSIS W/O CURRENT PATHOLOGICAL FRACTURE Current Visit: Yes (13) Anxiety SNOMED Code(s): 84737963 Code(s): F41.9 - ANXIETY DISORDER, UNSPECIFIED Current Visit: No (14) Hiatal hernia SNOMED Code(s): 75590279 Code(s): K44.9 - DIAPHRAGMATIC HERNIA WITHOUT OBSTRUCTION OR GANGRENE Current Visit: Yes (15) Fibromyalgia SNOMED Code(s): 423044611 Code(s): M79.7 - FIBROMYALGIA Current Visit: Yes (16) Lumbar radiculopathy SNOMED Code(s): 039945064 Code(s): M54.16 - RADICULOPATHY, LUMBAR REGION Current Visit: Yes (17) Current every day smoker SNOMED Code(s): 846742259, 010059330 Code(s): F17.200 - NICOTINE DEPENDENCE, UNSPECIFIED, UNCOMPLICATED Current Visit: Yes Problem List Initiated/Reviewed/Updated: Yes Plan: I/P: Acute: S/P left total knee arthroplasty - post-operative day 0 -DVT prophylaxis and pain management per primary care team -PT/OT -IS/RT -Monitor oxygen saturation -Titrate oxygen as needed -Home medications reviewed -Vital signs stable -Monitor labs -Pre-operative Hgb was 15.5 -Pre-operative GFR was >60 -Pre-operative A1C was 6.1% Osteoarthritis of left knee -Pain management per primary care team Daily tobacco use -Nicotine patch -Cessation counseling -Offer nicotine patches at discharge Chronic: Post-operative nausea and vomiting Anxiety Chronic low back pain Depression Leukocytosis GERD Eczema Pulmonary nodule Atrial hypertrophy ANGELA - untreated Osteoporosis Hiatal hernia Fibromyalgia Lumbar radiculopathy Plan: CM for discharge planning GI prophylaxis Home medications as indicated Other orders as listed above Routine AM labs She is a full code. Her PCP is Daisy Ann PA-C Thank you for allowing us to participate in the care of this patient!! Requesting Provider: Dr. Roca Date Consult Requested: 03/18/20 Patient History Reviewed: Yes Admission H&P Reviewed: Yes Notified Requestor: Yes
[2020-03-18] MEDS ORDERED: ceFAZolin 1 GM Vial ONE ×2 (10:20→11:47)
[2020-03-18] MEDS ORDERED: Vancomycin 1 GM SDV ONE (10:20)
[2020-03-18] MEDS ORDERED: Iodine/Sodium Iodide 2% Tincture 30 ML Bottle ONE (10:20)
[2020-03-18] MEDS ORDERED: Bupivacaine 0.25% 10 ML SDV ONE (10:20)
--- NOTE | 2020-03-18 10:39 | PCM.PREANE ---
Preanesthetic Assessment - Anesthesia/Transfusion/Family Hx Anesthesia History: Prior Anesthesia Reaction Transfusion History: No Prior Transfusion(s) Intubation History: Unknown - Review of Systems General: No Symptoms Pulmonary: No Symptoms Cardiovascular: No Symptoms Gastrointestinal: No Symptoms Neurological: No Symptoms Other: Reports: None - Physical Assessment NPO Status Date: 03/17/20 NPO Status Time: 22:00 Vital Signs: Last Vital Signs Temp 97.2 F 03/18/20 10:00 Pulse 82 03/18/20 10:00 Resp 16 03/18/20 10:00 BP 117/72 03/18/20 10:00 Pulse Ox 96 03/18/20 10:00 Height: 1.68 m Weight: 64.41 kg ASA Class: 3 Mental Status: Alert & Oriented x3 Airway Class: Mallampati = 1 Dentition: Reports: Normal Dentition, [place](s), Bridge Thyro-Mental Finger Breadths: 3 Mouth Opening Finger Breadths: 3 ROM/Head Extension: Full Lungs: Clear to Auscultation, Normal Respiratory Effort Cardiovascular: Regular Rate, Regular Rhythm - Lab Values: Laboratory Last Values COVID-19 PCR Not detected (NOT DETECT) 03/14/20 13:33 - Allergies Allergies/Adverse Reactions: Allergies Allergy/AdvReac Type Severity Reaction Status Date / Time chlorpheniramine Allergy Cannot Verified 03/15/20 14:29 [From [facility]] Remember clindamycin Allergy Hives Verified 03/15/20 14:29 codeine Allergy Itching Verified 03/15/20 14:29 erythromycin base Allergy Itching Verified 03/15/20 14:29 Iodinated Contrast Media Allergy Hives Verified 03/15/20 14:29 [Iodinated Contrast Media - IV Dye] peanut Allergy Redness Verified 03/15/20 14:29 penicillin Allergy Hives Verified 03/15/20 14:29 phenylephrine [From [facility]] Allergy Cannot Verified 03/15/20 14:29 Remember poppyseed oil Allergy Swollen Verified 03/15/20 14:29 Tongue - Acknowledgements Anesthesia Type Planned: Spinal, Regional Block (adductor canal for postoperative pain) Pt an Appropriate Candidate for the Planned Anesthesia: Yes Alternatives and Risks of Anesthesia Discussed w Pt/Guardian: Yes Pt/Guardian Understands and Agrees with Anesthesia Plan: Yes PreAnesthesia Questionnaire HEENT History: Reports: Impaired Vision, Sinusitis, Other (See Below) Other HEENT History: sinusitis Cardiovascular History: Reports: Other (See Below) Other Cardiovascular History: athersclerosis, atypical chest pain Respiratory History: Reports: Other (See Below) Other Respiratory History: dyspnea Gastrointestinal History: Reports: GERD, Hiatal Hernia, Other (See Below) Other Gastrointestinal History: gastric pain, R groin pain, liver cyst, post op nausea and vomiting Genitourinary History: Reports: Other (See Below) Other Genitourinary History: yeast infection, pelvic fullness [employer] History: Reports: Musculoskeletal History: Reports: Arthritis, Fibromyalgia, Osteoarthritis, Other (See Below) Other Musculoskeletal History: bulging disc, lumbar radiculopathy, calf pain, low back pain, trigger thumb, scolosis, right should pain, arthritis, joint pain Neurological History: Reports: None, Other (See Below) Psychiatric History: Reports: Anxiety, Depression Endocrine/Metabolic History: Reports: Other (See Below) Other Endocrine/Metabolic History: borderline diabetic - Infectious Disease History Infectious Disease History: Reports: Chicken Pox, Measles, Mumps, Shingles - Past Surgical History Head Surgeries/Procedures: Reports: None HEENT Surgical History: Reports: Cataract Surgery, Naso-Sinus Surgery, Tonsillectomy Cardiovascular Surgical History: Reports: None Respiratory Surgical History: Reports: None GI Surgical History: Reports: Appendectomy, Bariatric Procedure, Cholecystectomy, Colonoscopy, EGD, Hernia Repair/Other Female Surgical History: Reports: Section, Hysterectomy, Oophorectomy Male Surgical History: Reports: None Neurological Surgical History: Reports: Other (See Below) Other Neurological Surgeries/Procedures: intraspinal surgery Musculoskeletal Surgical History: Reports: Knee Replacement, Other (See Below) Other Musculoskeletal Surgeries/Procedures:: multiple knee surgeries. Oncologic Surgical History: Reports: None Dermatological Surgical History: Reports: None - SUBSTANCE USE Smoking Status *Q: Current Every Day Smoker Recreational Drug Use History: No - HOME MEDS Home Medications: Home Meds traZODone 100 mg PO BEDTIME 07/31/15 [History] Cholecalciferol (Vitamin D3) [Vitamin D3] 5,000 unit PO DAILY 03/15/20 [History] EPINEPHrine [Epipen] 1 dose IM ONETIME PRN 03/15/20 [History] Escitalopram Oxalate 30 mg PO DAILY 03/15/20 [History] LORazepam [Ativan] 1 mg PO QAM 03/15/20 [History] LORazepam [Lorazepam] 0.5 mg PO QPM 03/15/20 [History] oxyCODONE HCl/Acetaminophen [Oxycodone-Acetaminophen 5-325] 1 tab PO Q6H 03/15/20 [History] - CURRENT (IN HOUSE) MEDS Current Meds: Current Medications Acetaminophen (Tylenol) 975 mg PO ONETIME [facility] Last Admin: 03/18/20 10:22 Dose: 975 mg Documented by: Aspirin (Ecotrin) 325 mg PO BID PAL Bisacodyl (Dulcolax) 5 mg PO DAILY PRN PRN Reason: Constipation Morphine Sulfate 8 mg/Epinephrine HCl 0.3 mg/Cefuroxime Sodium 750 mg/Ketorolac Tromethamine 30 mg/Sodium Chloride 7.9 ml 0 mg .XX ASDIRECTED PRN PRN Reason: Pain Stop: 03/18/20 23:00 Cyclobenzaprine HCl (Flexeril) 10 mg PO TID PRN PRN Reason: Spasms Docusate Sodium (Colace) 100 mg PO BID PAL Famotidine (Pepcid) 20 mg PO Q12H [facility] Lactated Ringer's (Ringers, Lactated) 1,000 mls @ 125 mls/hr IV ASDIRECTED [facility] Stop: 03/18/20 23:00 Last Admin: 03/18/20 10:23 Dose: 125 mls/hr Documented by: Cefazolin Sodium/Dextrose 2 gm (/ Premix) 50 mls @ 100 mls/hr IV Q8H [facility] Stop: 03/18/20 22:59 Ketorolac Tromethamine (Toradol) 15 mg IVPUSH Q6H PRN PRN Reason: Pain Lidocaine/Sodium Bicarbonate (Buffered Lidocaine 1% In Ns 8.4%) 0.25 ml IDERM ONETIME PRN PRN Reason: Prior to IV Start Stop: 03/18/20 18:00 Magnesium Hydroxide (Milk Of Magnesia) 30 ml PO BID PRN PRN Reason: Constipation Morphine Sulfate (Morphine) 2 mg IVPUSH Q2H PRN PRN Reason: Breakthrough Pain Naloxone HCl (Narcan) 0.1 mg IVPUSH Q5M PRN PRN Reason: Oversedation Ondansetron HCl (Zofran) 4 mg IVPUSH Q6H PRN PRN Reason: Nausea/Vomiting Oxycodone HCl (Oxycontin) 10 mg PO ONETIME [facility] Last Admin: 03/18/20 10:23 Dose: 10 mg Documented by: Oxycodone HCl (Oxycodone) 15 mg PO Q6H PRN PRN Reason: Pain Pregabalin (Lyrica) 50 mg PO ONETIME [facility] Last Admin: 03/18/20 10:23 Dose: 50 mg Documented by: Scopolamine (Transderm-Scop) 1.5 mg TOP ONETIME [facility] Stop: 03/18/20 14:00 Last Admin: 03/18/20 10:24 Dose: 1.5 mg Documented by: Senna (Senna) 8.6 mg PO BID PRN PRN Reason: Constipation Sodium Chloride (Saline Flush) 10 ml FLUSH ASDIRECTED PRN PRN Reason: Keep Vein Open Stop: 03/18/20 18:00 Discontinued Medications Bupivacaine HCl (Sensorcaine-Mpf 0.25%) Confirm Administered Dose 30 ml .ROUTE .STK-MED ONE Stop: 03/18/20 10:21 Cefazolin Sodium (Ancef) Confirm Administered Dose 2 gm .ROUTE .STK-MED ONE Stop: 03/18/20 10:21 Lactated Ringer's (Ringers, Lactated) 1,000 mls @ 125 mls/hr IV ASDIRECTED [facility] Stop: 03/11/20 23:00 Iodine (Iodine 2% Mild Tincture) Confirm Administered Dose 30 ml .ROUTE .STK-MED ONE Stop: 03/18/20 10:21 Lidocaine/Sodium Bicarbonate (Buffered Lidocaine 1% In Ns 8.4%) 0.25 ml IDERM ONETIME PRN PRN Reason: Prior to IV Start Stop: 03/11/20 18:00 Sodium Chloride (Saline Flush) 10 ml FLUSH ASDIRECTED PRN PRN Reason: Keep Vein Open Stop: 03/11/20 18:00 Tranexamic Acid (Cyklokapron) Confirm Administered Dose 1,000 mg .ROUTE .STK-MED ONE Stop: 03/18/20 10:20 Vancomycin HCl (Vancomycin) Confirm Administered Dose 1 gm .ROUTE .STK-MED ONE Stop: 03/18/20 10:21
[2020-03-18] MEDS ORDERED: Propofol 200 MG/20 ML SDV ONE (11:24)
[2020-03-18] MEDS ORDERED: Midazolam 1 MG/ML 2 ML SDV ONE (11:25)
[2020-03-18] MEDS ORDERED: Lidocaine 1% 4 ML ONE (11:25)
[2020-03-18] MEDS ORDERED: Bupivacaine 0.75% 30 ML SDV ONE (11:36)
[2020-03-18] MEDS ORDERED: Lactated Ringers 1,000 ML ONE (11:47)
[2020-03-18] MEDS ORDERED: Morphine Sulfate 8 MG, EPINEPHrine 0.3 MG, Cefuroxime 750 MG, Ketorolac 30 MG, Sodium C... PRN ×5 (12:30)
[2020-03-18] MEDS ORDERED: Dexamethasone 4 MG/ML 5 ML MDV ONE (12:50)
[2020-03-18] MEDS ORDERED: HYDROmorphone 0.5 MG/0.5 ML Syringe IVPUSH PRN (12:54)
[2020-03-18] MEDS ORDERED: fentaNYL 100 MCG/2 ML SDV IVPUSH PRN (12:54)
--- NOTE | 2020-03-18 12:56 | PCM.PRNOTE ---
- Free Text/Narrative Note: Postoperative regional pain control requested by surgeon. Pre-op Dx: Left knee osteoarthritis. Post-op Rx: Total Left knee arthroplasty. Procedure: Left Adductor canal block with U/S guidance Requesting physician: Dr. Kian Tse Risks and benefits discussed with the patient preoperatively including infection, bleeding, incomplete or failed block, possible nerve damage, local anesthetic toxicity. Permit signed. Patient after spinal anesthesia post surgery in PACU, stable , alert and awake. Time out performed. Left mid-thigh was prepped with Chloraprep x 1 and allowed to dry. Under aseptic technique, the left femoral artery and sartorius muscle were identified under ultrasound prior to needle insertion. 4" Stimuplex needle #[id number] was inserted under US guidance. Under direct visualization of needle tip the injection of 0.5% Ropivacaine with 1:200k epinephrine and 6 mg of Dexamethasone, total of 30 mls in divided doses, maintaining negative aspiration was completed without problems. No local anesthetic toxicity was noted. Patient is awake, stable and tolerated the procedure well. Time: 13:43 - 13:51
--- NOTE | 2020-03-18 13:39 | PCM.POSTAN ---
POST ANESTHESIA ASSESSMENT - MENTAL STATUS Mental Status: Alert - VITAL SIGNS Vital Signs: Last Vital Signs Temp 97.3 F 03/18/20 13:29 Pulse 82 03/18/20 10:00 Resp 18 03/18/20 13:29 BP 91/56 L 03/18/20 13:29 Pulse Ox 93 L 03/18/20 13:29 - RESPIRATORY Respiratory Status: Respiratory Rate WNL, Airway Patent, O2 Saturation Stable, Supplemental Oxygen - CARDIOVASCULAR CV Status: Pulse Rate WNL, Blood Pressure Stable - GASTROINTESTINAL GI Status: No Symptoms - PAIN Pain Score: 0 (post SAB) - POST OP HYDRATION Hydration Status: Adequate & Stable
[2020-03-18] MEDS ORDERED: Remove AND REPLACE NICOTINE Patch TRDERM SCH ×2 (14:30→21:00)
[2020-03-18] MEDS ORDERED: Nicotine 14 MG/24 Hr Patch TRDERM SCH ×2 (14:30→21:00)
--- NOTE | 2020-03-18 14:32 | CR ---
Left knee: AP and crosstable lateral views of the left knee were obtained. Comparison: Previous right knee study of 10/07/12 which shows the left knee. Left knee prosthesis is seen. Components are aligned. Soft tissue air is noted around the knee. No underlying bony abnormality is appreciated. Impression: 1. Satisfactory postop radiographic appearance of recently placed left knee prosthesis. Diagnostic code #2 This report was dictated in MDT
[2020-03-18] MEDS: Ketorolac 15 MG/ML SDV IVPUSH PRN ×2 (18:06→23:59)
[2020-03-18] MEDS: Cyclobenzaprine 10 MG Tab PO PRN (18:58)
[2020-03-18] MEDS: Docusate Sodium 100 MG Cap PO SCH (20:00)
[2020-03-18] MEDS: Famotidine 20 MG Tab PO SCH (20:00)
[2020-03-18] MEDS: ceFAZolin 2 GM in Premix Bag 1 BAG IV SCH (20:00)
[2020-03-18] MEDS ORDERED: traZODone 50 MG Tab PO SCH (21:00)
[2020-03-18] MEDS ORDERED: traZODone 50 MG Tab PO ONE (21:45)
[2020-03-19] MEDS: Cyclobenzaprine 10 MG Tab PO PRN (03:49)
[2020-03-19] MEDS: ceFAZolin 2 GM in Premix Bag 1 BAG IV SCH ×2 (03:49→11:13)
[2020-03-19] MEDS ORDERED: Aspirin 325 MG Tab.EC PO SCH (06:25)
--- NOTE | 2020-03-19 07:43 | PCM.CONSN ---
- General Info Date of Service: 03/19/20 Admission Dx/Problem (Free Text): Admission Diagnosis/Problem Admission Diagnosis/Problem Osteoarthritis of knee Functional Status: Reports: Pain Controlled, Tolerating Diet, Ambulating, Urinating, Incentive Spirometry. Denies: New Symptoms - Review of Systems General: Reports: No Symptoms. Denies: Fever, Chills HEENT: Reports: No Symptoms. Denies: Headaches, Sore Throat Pulmonary: Reports: No Symptoms. Denies: Shortness of Breath, Pleuritic Chest Pain, Cough, Sputum, Wheezing Cardiovascular: Reports: No Symptoms. Denies: Chest Pain, Palpitations, Dyspnea on Exertion Gastrointestinal: Reports: No Symptoms. Denies: Abdominal Pain, Constipation, Diarrhea, Nausea, Vomiting Genitourinary: Reports: No Symptoms. Denies: Pain Musculoskeletal: Reports: Leg Pain Skin: Reports: No Symptoms. Denies: Cyanosis Neurological: Reports: Difficulty Walking, Gait Disturbance. Denies: Confusion, Numbness, Tingling Psychiatric: Reports: No Symptoms - Patient Data Vitals - Most Recent: Last Vital Signs Temp 97.9 F 03/19/20 04:01 Pulse 56 L 03/19/20 04:01 Resp 18 03/19/20 04:01 BP 108/68 03/19/20 04:01 Pulse Ox 97 03/19/20 04:01 Weight - Most Recent: 149 lb 8 oz I&O - Last 24 Hours: Intake & Output 03/18/20 03/19/20 03/19/20 22:59 06:59 14:59 Intake Total 300 1500 Output Total 3 Balance 300 1497 Lab Results Last 24 Hours: Laboratory Results - last 24 hr 03/19/20 03/19/20 Range/Units 05:20 05:20 WBC 14.77 H (3.98-10.04) K/mm3 RBC 3.95 L (3.98-5.22) M/mm3 Hgb 12.3 D (11.2-15.7) gm/dl Hct 38.4 (34.1-44.9) % MCV 97.2 H (79.4-94.8) fl MCH 31.1 (25.6-32.2) pg MCHC 32.0 L (32.2-35.5) g/dl RDW Std Deviation 45.2 (36.4-46.3) fL Plt Count 209 (182-369) K/mm3 MPV 10.0 (9.4-12.3) fl Sodium 136 (136-145) mEq/L Potassium 4.3 (3.5-5.1) mEq/L Chloride 102 (98-107) mEq/L Carbon Dioxide 29 (21-32) mEq/L Anion Gap 9.3 (5-15) BUN 16 (7-18) mg/dL Creatinine 0.8 (0.55-1.02) mg/dL Est Cr Clr Drug Dosing 68.26 mL/min Estimated GFR (MDRD) > 60 (>60) mL/min BUN/Creatinine Ratio 20.0 H (14-18) Glucose 146 H (80-115) mg/dL Calcium 8.4 L (8.5-10.1) mg/dL Total Bilirubin 0.4 (0.2-1.0) mg/dL AST 17 (15-37) U/L ALT 17 (14-59) U/L Alkaline Phosphatase 60 (46-116) U/L Total Protein 5.9 L (6.4-8.2) g/dl Albumin 2.9 L (3.4-5.0) g/dl Globulin 3.0 gm/dL Albumin/Globulin Ratio 1.0 (1-2) Med Orders - Current: Current Medications Bisacodyl (Dulcolax) 5 mg PO DAILY PRN PRN Reason: Constipation Cholecalciferol (Vitamin D3) 5,000 unit PO DAILY [facility] Citalopram Hydrobromide (Celexa) 40 mg PO DAILY [facility] Cyclobenzaprine HCl (Flexeril) 10 mg PO TID PRN PRN Reason: Spasms Last Admin: 03/19/20 03:49 Dose: 10 mg Documented by: Docusate Sodium (Colace) 100 mg PO BID [facility] Last Admin: 03/18/20 20:00 Dose: 100 mg Documented by: Famotidine (Pepcid) 20 mg PO Q12H [facility] Last Admin: 03/18/20 20:00 Dose: 20 mg Documented by: Cefazolin Sodium/Dextrose 2 gm (/ Premix) 50 mls @ 100 mls/hr IV Q8H [facility] Stop: 03/19/20 12:29 Last Admin: 03/19/20 03:49 Dose: 100 mls/hr Documented by: Ketorolac Tromethamine (Toradol) 15 mg IVPUSH Q6H PRN PRN Reason: Pain Last Admin: 03/18/20 23:59 Dose: 15 mg Documented by: Magnesium Hydroxide (Milk Of Magnesia) 30 ml PO BID PRN PRN Reason: Constipation Miscellaneous Information (Remove Patch) 14 ea TRDERM DAILY@2100 [facility] Last Admin: 03/18/20 21:48 Dose: Not Given Documented by: Morphine Sulfate (Morphine) 2 mg IVPUSH Q2H PRN PRN Reason: Breakthrough Pain Last Admin: 03/19/20 00:45 Dose: 2 mg Documented by: Naloxone HCl (Narcan) 0.1 mg IVPUSH Q5M PRN PRN Reason: Oversedation Nicotine (Habitrol) 14 mg TRDERM DAILY@2100 [facility] Last Admin: 03/18/20 20:01 Dose: 14 mg Documented by: Ondansetron HCl (Zofran) 4 mg IVPUSH Q6H PRN PRN Reason: Nausea/Vomiting Oxycodone HCl (Oxycodone) 15 mg PO Q6H PRN PRN Reason: Pain Last Admin: 03/19/20 01:59 Dose: 15 mg Documented by: Rivaroxaban (Xarelto) 10 mg PO DAILY [facility] Senna (Senna) 8.6 mg PO BID PRN PRN Reason: Constipation Last Admin: 03/18/20 18:58 Dose: 8.6 mg Documented by: Discontinued Medications Acetaminophen (Tylenol) 975 mg PO ONETIME [facility] Last Admin: 03/18/20 10:22 Dose: 975 mg Documented by: Aspirin (Ecotrin) 325 mg PO BID [facility] Bupivacaine HCl (Sensorcaine-Mpf 0.25%) Confirm Administered Dose 30 ml .ROUTE .STK-MED ONE Stop: 03/18/20 10:21 Last Admin: 03/18/20 13:00 Dose: 30 ml Documented by: Bupivacaine HCl (Sensorcaine-Mpf 0.75%) Confirm Administered Dose 30 ml .ROUTE .STK-MED ONE Stop: 03/18/20 11:37 Cefazolin Sodium (Ancef) Confirm Administered Dose 2 gm .ROUTE .STK-MED ONE Stop: 03/18/20 10:21 Last Admin: 03/18/20 12:56 Dose: 2 gm Documented by: Cefazolin Sodium (Ancef) Confirm Administered Dose 2 gm .ROUTE .STK-MED ONE Stop: 03/18/20 11:48 Morphine Sulfate 8 mg/Epinephrine HCl 0.3 mg/Cefuroxime Sodium 750 mg/Ketorolac Tromethamine 30 mg/Sodium Chloride 7.9 ml 0 mg .XX ASDIRECTED PRN PRN Reason: Pain Stop: 03/18/20 23:00 Last Admin: 03/18/20 13:00 Dose: 788.3 mg Documented by: Dexamethasone (Dexamethasone) Confirm Administered Dose 20 mg .ROUTE .STK-MED ONE Stop: 03/18/20 12:51 Fentanyl (Sublimaze) 100 mcg IVPUSH ONETIME PRN PRN Reason: Pain Stop: 03/18/20 15:30 Hydromorphone HCl (Dilaudid) 0.5 mg IVPUSH ONETIME PRN PRN Reason: Pain (severe 7-10) Stop: 03/18/20 15:30 Lactated Ringer's (Ringers, Lactated) 1,000 mls @ 125 mls/hr IV ASDIRECTED PAL Stop: 03/11/20 23:00 Lactated Ringer's (Ringers, Lactated) 1,000 mls @ 125 mls/hr IV ASDIRECTED PAL Stop: 03/18/20 23:00 Last Admin: 03/18/20 10:23 Dose: 125 mls/hr Documented by: Lidocaine HCl (Xylocaine-Mpf 1%) Confirm Administered Dose 4 mls @ as directed .ROUTE .STK-MED ONE Stop: 03/18/20 11:26 Lactated Ringer's (Ringers, Lactated) Confirm Administered Dose 1,000 mls @ as directed .ROUTE .STK-MED ONE Stop: 03/18/20 11:48 Iodine (Iodine 2% Mild Tincture) Confirm Administered Dose 30 ml .ROUTE .STK-MED ONE Stop: 03/18/20 10:21 Last Admin: 03/18/20 12:55 Dose: 18 ml Documented by: Lidocaine/Sodium Bicarbonate (Buffered Lidocaine 1% In Ns 8.4%) 0.25 ml IDERM ONETIME PRN PRN Reason: Prior to IV Start Stop: 03/11/20 18:00 Lidocaine/Sodium Bicarbonate (Buffered Lidocaine 1% In Ns 8.4%) 0.25 ml IDERM ONETIME PRN PRN Reason: Prior to IV Start Stop: 03/18/20 18:00 Midazolam HCl (Versed 1 Mg/Ml) Confirm Administered Dose 2 mg .ROUTE .STK-MED ONE Stop: 03/18/20 11:26 Miscellaneous Information (Remove Patch) 14 ea TRDERM DAILY@1430 [facility] Last Admin: 03/18/20 18:28 Dose: Not Given Documented by: Nicotine (Habitrol) 14 mg TRDERM DAILY@1430 [facility] Last Admin: 03/18/20 18:28 Dose: Not Given Documented by: Oxycodone HCl (Oxycontin) 10 mg PO ONETIME [facility] Last Admin: 03/18/20 10:23 Dose: 10 mg Documented by: Oxycodone HCl (Oxycodone) 15 mg PO Q6H PRN PRN Reason: Pain Pregabalin (Lyrica) 50 mg PO ONETIME [facility] Last Admin: 03/18/20 10:23 Dose: 50 mg Documented by: Propofol (Diprivan 20 Ml) Confirm Administered Dose 600 mg .ROUTE .STK-MED ONE Stop: 03/18/20 11:25 Scopolamine (Transderm-Scop) 1.5 mg TOP ONETIME PAL Stop: 03/18/20 14:00 Last Admin: 03/18/20 10:24 Dose: 1.5 mg Documented by: Sodium Chloride (Saline Flush) 10 ml FLUSH ASDIRECTED PRN PRN Reason: Keep Vein Open Stop: 03/11/20 18:00 Sodium Chloride (Saline Flush) 10 ml FLUSH ASDIRECTED PRN PRN Reason: Keep Vein Open Stop: 03/18/20 18:00 Tranexamic Acid (Cyklokapron) Confirm Administered Dose 1,000 mg .ROUTE .STK-MED ONE Stop: 03/18/20 10:20 Last Admin: 03/18/20 13:06 Dose: 1,000 mg Documented by: Trazodone HCl (Trazodone) 100 mg PO BEDTIME PAL Trazodone HCl (Trazodone) 50 mg PO ONETIME ONE Stop: 03/18/20 21:46 Last Admin: 03/18/20 22:02 Dose: 50 mg Documented by: Vancomycin HCl (Vancomycin) Confirm Administered Dose 1 gm .ROUTE .STK-MED ONE Stop: 03/18/20 10:21 Last Admin: 03/18/20 13:03 Dose: 1 gm Documented by: - Exam Quality Assessment: DVT Prophylaxis. No: Supplemental Oxygen, Urine Catheter General: Alert, Oriented, Cooperative, No Acute Distress HEENT: Pupils Equal, Pupils Reactive, Mucous Membr. Moist/[place] Neck: Supple, Trachea Midline Lungs: Clear to Auscultation, Normal Respiratory Effort Cardiovascular: Regular Rate, Regular Rhythm GI/Abdominal Exam: Normal Bowel Sounds, Soft, Non-Tender, No Distention (Female) Exam: Deferred Back Exam: Normal Inspection, Full Range of Motion Extremities: Normal Capillary Refill, Leg Pain, Limited Range of Motion, Other (Bandage in place on left leg. Cooling pack in place. ) Peripheral Pulses: 2+: Radial (L), Radial (R), Dorsalis Pedis (L), Dorsalis Pedis (R) Skin: Warm, Dry, Intact Wound/Incisions: Dressing Dry and Intact Neurological: No New Focal Deficit Psy/Mental Status: Alert, Normal Affect, Normal Mood Sepsis Event Note - Evaluation Sepsis Screening Result: No Definite Risk - Focused Exam Vital Signs: Vital Signs Temp Pulse Resp BP Pulse Ox 03/19/20 04:01 97.9 F 56 L 18 108/68 97 03/19/20 00:04 98.2 F 48 L 16 119/35 L 97 Date Exam was Performed: 03/19/20 Time Exam was Performed: 10:30 Consult PN Assessment/Plan POD#: 1 Procedures: Procedures ANTINUCLEAR ANTIBODIES (05/02/19) ASSAY OF CREATININE (01/20/18) ASSAY OF LIPASE (03/18/15) ASSAY OF PREALBUMIN (03/04/20) ASSAY THYROID STIM HORMONE (06/29/16) BONE IMAGING 3 PHASE (11/14/19) C DIFF AMPLIFIED PROBE (03/19/15) C-REACTIVE PROTEIN (05/05/17) CARDIOVASCULAR STRESS TEST (03/12/20) CCP ANTIBODY (05/02/19) COLONOSCOPY AND BIOPSY (03/09/17) COMPLETE CBC AUTOMATED (06/29/16) COMPLETE CBC W/AUTO DIFF WBC (03/04/20) COMPREHEN METABOLIC PANEL (03/04/20) CT ABD & PELVIS W/O CONTRAST (12/29/16) CT THORAX W/O DYE (11/30/16) CULTURE SCREEN ONLY (11/04/15) DXA BONE DENSITY AXIAL (03/05/20) ECHO EXAM OF ABDOMEN (03/05/20) EGD BIOPSY SINGLE/MULTIPLE (03/09/17) EMERGENCY DEPT VISIT (11/08/18) EMERGENCY DEPT VISIT (08/09/16) EMERGENCY DEPT VISIT (01/23/16) EXTREMITY STUDY (01/03/18) GLYCOSYLATED HEMOGLOBIN TEST (03/05/20) HELICOBACTER PYLORI ANTIBODY (05/02/19) HT MUSCLE IMAGE SPECT MULT (03/12/20) HYDRATE IV INFUSION ADD-ON (03/18/15) HYDRATION IV INFUSION INIT (03/18/15) INFLUENZA ASSAY W/OPTIC (11/12/16) LIPID PANEL (06/29/16) METABOLIC PANEL TOTAL CA (02/13/16) MR-STAPH DNA AMP PROBE (02/28/20) MRI CHEST SPINE W/O DYE (12/02/16) MRI JNT OF LWR EXTRE W/O DYE (12/17/16) MRI JOINT UPR EXTREM W/O DYE (09/12/19) MRI LUMBAR SPINE W/O & W/DYE (01/20/18) MRI LUMBAR SPINE W/O DYE (05/16/19) POLYSOM 6/> YRS 4/> OUMOU (04/09/17) PROTHROMBIN TIME (03/04/20) RBC SED RATE AUTOMATED (02/13/16) RHEUMATOID FACTOR TEST QUAL (05/02/19) ROUTINE VENIPUNCTURE (03/05/20) STREP A AG IA (11/04/15) THROMBOPLASTIN TIME PARTIAL (03/04/20) TISSUE EXAM BY PATHOLOGIST (03/09/17) TTE W/DOPPLER COMPLETE (03/15/20) URINALYSIS AUTO W/SCOPE (03/04/20) VANOMYCIN DNA AMP PROBE (03/19/15) X-RAY EXAM CHEST 2 VIEWS (03/04/20) X-RAY EXAM HIP UNI 2-3 VIEWS (05/05/17) X-RAY EXAM L-2 SPINE 4/>VWS (12/04/16) X-RAY EXAM L-S SPINE 2/3 VWS (10/12/18) X-RAY EXAM NECK SPINE 2-3 VW (10/12/18) X-RAY EXAM OF PELVIS (12/04/16) X-RAY EXAM OF SHOULDER (08/14/19) X-RAY EXAM THORAC SPINE 2VWS (10/12/18) XCAPSL CTRC RMVL W/O ECP (08/15/15) (1) S/P total knee arthroplasty SNOMED Code(s): 5213905398503, 877237780, 6639910220757 Code(s): Z96.659 - PRESENCE OF UNSPECIFIED ARTIFICIAL KNEE JOINT Priority: High Current Visit: Yes Qualifiers: Laterality: left Qualified Code(s): Z96.652 - Presence of left artificial knee joint (2) Osteoarthritis SNOMED Code(s): 588733255 Code(s): M19.90 - UNSPECIFIED OSTEOARTHRITIS, UNSPECIFIED SITE Priority: High Current Visit: Yes Qualifiers: Osteoarthritis location: knee Osteoarthritis type: primary Laterality: left Qualified Code(s): M17.12 - Unilateral primary osteoarthritis, left knee (3) History of postoperative nausea and vomiting SNOMED Code(s): 198210741, 635514476 Code(s): Z87.898 - PERSONAL HISTORY OF OTHER SPECIFIED CONDITIONS Priority: Low Current Visit: No (4) Chronic low back pain SNOMED Code(s): 394515831 Code(s): M54.5 - LOW BACK PAIN; G89.29 - OTHER CHRONIC PAIN Priority: Medium Current Visit: No Qualifiers: Back pain laterality: unspecified Sciatica presence: unspecified whether sciatica present Qualified Code(s): M54.5 - Low back pain; G89.29 - Other chronic pain (5) Depression SNOMED Code(s): 27230549 Code(s): F32.9 - MAJOR DEPRESSIVE DISORDER, SINGLE EPISODE, UNSPECIFIED Priority: Low Current Visit: No Qualifiers: Depression Type: other depression Qualified Code(s): F32.89 - Other specified depressive episodes (6) Leukocytosis SNOMED Code(s): 677399059, 423435960 Code(s): D72.829 - ELEVATED WHITE BLOOD CELL COUNT, UNSPECIFIED Priority: L ow Current Visit: No Qualifiers: Leukocytosis type: unspecified Qualified Code(s): D72.829 - Elevated white blood cell count, unspecified (7) GERD (gastroesophageal reflux disease) SNOMED Code(s): 588181392 Code(s): K21.9 - GASTRO-ESOPHAGEAL REFLUX DISEASE WITHOUT ESOPHAGITIS Priority: Low Current Visit: No Qualifiers: Esophagitis presence: esophagitis presence not specified Qualified Code(s): K21.9 - Gastro-esophageal reflux disease without esophagitis (8) Eczema SNOMED Code(s): 82983745 Code(s): L30.9 - DERMATITIS, UNSPECIFIED Priority: Low Current Visit: No Qualifiers: Eczema type: unspecified Qualified Code(s): L30.9 - Dermatitis, unspecified (9) Pulmonary nodule SNOMED Code(s): 640062155 Code(s): R91.1 - SOLITARY PULMONARY NODULE Priority: Low Current Visit: No (10) Atrial hypertrophy SNOMED Code(s): 904060085 Code(s): I51.7 - CARDIOMEGALY Priority: Low Current Visit: No (11) ANGELA (obstructive sleep apnea) SNOMED Code(s): 73819395 Code(s): G47.33 - OBSTRUCTIVE SLEEP APNEA (ADULT) (PEDIATRIC) Priority: Medium Current Visit: No (12) Osteoporosis SNOMED Code(s): 27012054 Code(s): M81.0 - AGE-RELATED OSTEOPOROSIS W/O CURRENT PATHOLOGICAL FRACTURE Priority: Medium Current Visit: Yes Qualifiers: Osteoporosis type: unspecified Presence of current pathological fracture: unspecified Qualified Code(s): M81.0 - Age-related osteoporosis without current pathological fracture (13) Anxiety SNOMED Code(s): 70410375 Code(s): F41.9 - ANXIETY DISORDER, UNSPECIFIED Priority: Low Current Visit: No (14) Hiatal hernia SNOMED Code(s): 66360603 Code(s): K44.9 - DIAPHRAGMATIC HERNIA WITHOUT OBSTRUCTION OR GANGRENE Priority: Low Current Visit: No (15) Fibromyalgia SNOMED Code(s): 909715025 Code(s): M79.7 - FIBROMYALGIA Priority: Low Current Visit: No (16) Lumbar radiculopathy SNOMED Code(s): 457914461 Code(s): M54.16 - RADICULOPATHY, LUMBAR REGION Priority: Low Current Vis it: No (17) Current every day smoker SNOMED Code(s): 929600278, 287651003 Code(s): F17.200 - NICOTINE DEPENDENCE, UNSPECIFIED, UNCOMPLICATED Priority: Medium Current Visit: Yes Problem List Initiated/Reviewed/Updated: Yes My Orders Last 24 Hours: My Active Orders 03/18/20 21:00 Nicotine [Habitrol] 14 mg TRDERM DAILY@2100 Remove Patch 14 ea TRDERM DAILY@2100 Plan: I/P: Acute: S/P left total knee arthroplasty - post-operative day 1 -DVT prophylaxis and pain management per primary care team -PT/OT -IS/RT -Monitor oxygen saturation -Titrate oxygen as needed -Home medications reviewed -Vital signs stable -Monitor labs -Pre-operative Hgb was 15.5; Now 12.3 -Pre-operative GFR was >60; Now >60 -Pre-operative A1C was 6.1% Osteoarthritis of left knee -Pain management per primary care team Daily tobacco use -Nicotine patch -Cessation counseling -Offer nicotine patches at discharge Chronic: Post-operative nausea and vomiting Anxiety Chronic low back pain Depression Leukocytosis GERD Eczema Pulmonary nodule Atrial hypertrophy ANGELA - untreated Osteoporosis Hiatal hernia Fibromyalgia Lumbar radiculopathy Plan: CM for discharge planning GI prophylaxis Home medications as indicated Other orders as listed above Routine AM labs She is a full code. Her PCP is Daisy Ann PA-C From a hospitalist standpoint Teetee is doing well. She has been up ambulating and working with therapies. She has urinated and is off of oxygen. Her pain is controlled. Her labs and vital signs remain stable. She is cleared for discharge pending primary team and PT/OT agreement. Teetee is a daily smoker. We did discuss her tobacco use and she was given practical resources such as [place] quits and the [facility] tobacco cessation program. We also discussed the importance of following up with her primary care provider. She has been utilizing nicotine patches while here and would like them prescribed on discharge. This has been sent to her pharmacy. She states she got rid of all her ashtrays at home in preparation for this. She reports she is feeling pretty good and does not think she will need cigarettes. We discussed resources, should she feel a craving. Case management was working on setting the patient up with our in-house tobacco cessation program. Thank you for allowing us to participate in the care of this patient!!
--- NOTE | 2020-03-19 08:10 | PCM.SURGPN ---
- General Info Date of Service: 03/19/20 POD#: 1 Functional Status: Reports: Pain Controlled, Tolerating Diet, Ambulating, Urinating, Incentive Spirometry, Other (The pt states she didn't sleep well. She states she has been "up moving" a lot since surgery.) - Patient Data Vitals - Most Recent: Last Vital Signs Temp 97.7 F 03/19/20 07:45 Pulse 68 03/19/20 07:45 Resp 14 03/19/20 07:45 BP 133/48 L 03/19/20 07:45 Pulse Ox 95 03/19/20 07:45 Weight - Most Recent: 149 lb 8 oz I&O - Last 24 Hours: Intake & Output 03/18/20 03/19/20 03/19/20 22:59 06:59 14:59 Intake Total 300 1500 Output Total 3 Balance 300 1497 Lab Results Last 24 Hrs: Laboratory Results - last 24 hr 03/19/20 03/19/20 Range/Units 05:20 05:20 WBC 14.77 H (3.98-10.04) K/mm3 RBC 3.95 L (3.98-5.22) M/mm3 Hgb 12.3 D (11.2-15.7) gm/dl Hct 38.4 (34.1-44.9) % MCV 97.2 H (79.4-94.8) fl MCH 31.1 (25.6-32.2) pg MCHC 32.0 L (32.2-35.5) g/dl RDW Std Deviation 45.2 (36.4-46.3) fL Plt Count 209 (182-369) K/mm3 MPV 10.0 (9.4-12.3) fl Sodium 136 (136-145) mEq/L Potassium 4.3 (3.5-5.1) mEq/L Chloride 102 (98-107) mEq/L Carbon Dioxide 29 (21-32) mEq/L Anion Gap 9.3 (5-15) BUN 16 (7-18) mg/dL Creatinine 0.8 (0.55-1.02) mg/dL Est Cr Clr Drug Dosing 68.26 mL/min Estimated GFR (MDRD) > 60 (>60) mL/min BUN/Creatinine Ratio 20.0 H (14-18) Glucose 146 H (80-115) mg/dL Calcium 8.4 L (8.5-10.1) mg/dL Total Bilirubin 0.4 (0.2-1.0) mg/dL AST 17 (15-37) U/L ALT 17 (14-59) U/L Alkaline Phosphatase 60 (46-116) U/L Total Protein 5.9 L (6.4-8.2) g/dl Albumin 2.9 L (3.4-5.0) g/dl Globulin 3.0 gm/dL Albumin/Globulin Ratio 1.0 (1-2) Med Orders - Current: Current Medications Bisacodyl (Dulcolax) 5 mg PO DAILY PRN PRN Reason: Constipation Cholecalciferol (Vitamin D3) 5,000 unit PO DAILY [facility] Citalopram Hydrobromide (Celexa) 40 mg PO DAILY [facility] Cyclobenzaprine HCl (Flexeril) 10 mg PO TID PRN PRN Reason: Spasms Last Admin: 03/19/20 03:49 Dose: 10 mg Documented by: Docusate Sodium (Colace) 100 mg PO BID [facility] Last Admin: 03/18/20 20:00 Dose: 100 mg Documented by: Famotidine (Pepcid) 20 mg PO Q12H [facility] Last Admin: 03/18/20 20:00 Dose: 20 mg Documented by: Cefazolin Sodium/Dextrose 2 gm (/ Premix) 50 mls @ 100 mls/hr IV Q8H [facility] Stop: 03/19/20 12:29 Last Admin: 03/19/20 03:49 Dose: 100 mls/hr Documented by: Ketorolac Tromethamine (Toradol) 15 mg IVPUSH Q6H PRN PRN Reason: Pain Last Admin: 03/18/20 23:59 Dose: 15 mg Documented by: Magnesium Hydroxide (Milk Of Magnesia) 30 ml PO BID PRN PRN Reason: Constipation Miscellaneous Information (Remove Patch) 14 ea TRDERM DAILY@2100 [facility] Last Admin: 03/18/20 21:48 Dose: Not Given Documented by: Morphine Sulfate (Morphine) 2 mg IVPUSH Q2H PRN PRN Reason: Breakthrough Pain Last Admin: 03/19/20 00:45 Dose: 2 mg Documented by: Naloxone HCl (Narcan) 0.1 mg IVPUSH Q5M PRN PRN Reason: Oversedation Nicotine (Habitrol) 14 mg TRDERM DAILY@2100 [facility] Last Admin: 03/18/20 20:01 Dose: 14 mg Documented by: Ondansetron HCl (Zofran) 4 mg IVPUSH Q6H PRN PRN Reason: Nausea/Vomiting Oxycodone HCl (Oxycodone) 15 mg PO Q6H PRN PRN Reason: Pain Last Admin: 03/19/20 01:59 Dose: 15 mg Documented by: Rivaroxaban (Xarelto) 10 mg PO DAILY [facility] Senna (Senna) 8.6 mg PO BID PRN PRN Reason: Constipation Last Admin: 03/18/20 18:58 Dose: 8.6 mg Documented by: Discontinued Medications Acetaminophen (Tylenol) 975 mg PO ONETIME [facility] Last Admin: 03/18/20 10:22 Dose: 975 mg Documented by: Aspirin (Ecotrin) 325 mg PO BID [facility] Bupivacaine HCl (Sensorcaine-Mpf 0.25%) Confirm Administered Dose 30 ml .ROUTE .STK-MED ONE Stop: 03/18/20 10:21 Last Admin: 03/18/20 13:00 Dose: 30 ml Documented by: Bupivacaine HCl (Sensorcaine-Mpf 0.75%) Confirm Administered Dose 30 ml .ROUTE .STK-MED ONE Stop: 03/18/20 11:37 Cefazolin Sodium (Ancef) Confirm Administered Dose 2 gm .ROUTE .STK-MED ONE Stop: 03/18/20 10:21 Last Admin: 03/18/20 12:56 Dose: 2 gm Documented by: Cefazolin Sodium (Ancef) Confirm Administered Dose 2 gm .ROUTE .STK-MED ONE Stop: 03/18/20 11:48 Morphine Sulfate 8 mg/Epinephrine HCl 0.3 mg/Cefuroxime Sodium 750 mg/Ketorolac Tromethamine 30 mg/Sodium Chloride 7.9 ml 0 mg .XX ASDIRECTED PRN PRN Reason: Pain Stop: 03/18/20 23:00 Last Admin: 03/18/20 13:00 Dose: 788.3 mg Documented by: Dexamethasone (Dexamethasone) Confirm Administered Dose 20 mg .ROUTE .STK-MED ONE Stop: 03/18/20 12:51 Fentanyl (Sublimaze) 100 mcg IVPUSH ONETIME PRN PRN Reason: Pain Stop: 03/18/20 15:30 Hydromorphone HCl (Dilaudid) 0.5 mg IVPUSH ONETIME PRN PRN Reason: Pain (severe 7-10) Stop: 03/18/20 15:30 Lactated Ringer's (Ringers, Lactated) 1,000 mls @ 125 mls/hr IV ASDIRECTED [facility] Stop: 03/11/20 23:00 Lactated Ringer's (Ringers, Lactated) 1,000 mls @ 125 mls/hr IV ASDIRECTED [facility] Stop: 03/18/20 23:00 Last Admin: 03/18/20 10:23 Dose: 125 mls/hr Documented by: Lidocaine HCl (Xylocaine-Mpf 1%) Confirm Administered Dose 4 mls @ as directed .ROUTE .STK-MED ONE Stop: 03/18/20 11:26 Lactated Ringer's (Ringers, Lactated) Confirm Administered Dose 1,000 mls @ as directed .ROUTE .STK-MED ONE Stop: 03/18/20 11:48 Iodine (Iodine 2% Mild Tincture) Confirm Administered Dose 30 ml .ROUTE .STK-MED ONE Stop: 03/18/20 10:21 Last Admin: 03/18/20 12:55 Dose: 18 ml Documented by: Lidocaine/Sodium Bicarbonate (Buffered Lidocaine 1% In Ns 8.4%) 0.25 ml IDERM ONETIME PRN PRN Reason: Prior to IV Start Stop: 03/11/20 18:00 Lidocaine/Sodium Bicarbonate (Buffered Lidocaine 1% In Ns 8.4%) 0.25 ml IDERM ONETIME PRN PRN Reason: Prior to IV Start Stop: 03/18/20 18:00 Midazolam HCl (Versed 1 Mg/Ml) Confirm Administered Dose 2 mg .ROUTE .STK-MED ONE Stop: 03/18/20 11:26 Miscellaneous Information (Remove Patch) 14 ea TRDERM DAILY@1430 [facility] Last Admin: 03/18/20 18:28 Dose: Not Given Documented by: Nicotine (Habitrol) 14 mg TRDERM DAILY@1430 [facility] Last Admin: 03/18/20 18:28 Dose: Not Given Documented by: Oxycodone HCl (Oxycontin) 10 mg PO ONETIME [facility] Last Admin: 03/18/20 10:23 Dose: 10 mg Documented by: Oxycodone HCl (Oxycodone) 15 mg PO Q6H PRN PRN Reason: Pain Pregabalin (Lyrica) 50 mg PO ONETIME [facility] Last Admin: 03/18/20 10:23 Dose: 50 mg Documented by: Propofol (Diprivan 20 Ml) Confirm Administered Dose 600 mg .ROUTE .STK-MED ONE Stop: 03/18/20 11:25 Scopolamine (Transderm-Scop) 1.5 mg TOP ONETIME [facility] Stop: 03/18/20 14:00 Last Admin: 03/18/20 10:24 Dose: 1.5 mg Documented by: Sodium Chloride (Saline Flush) 10 ml FLUSH ASDIRECTED PRN PRN Reason: Keep Vein Open Stop: 03/11/20 18:00 Sodium Chloride (Saline Flush) 10 ml FLUSH ASDIRECTED PRN PRN Reason: Keep Vein Open Stop: 03/18/20 18:00 Tranexamic Acid (Cyklokapron) Confirm Administered Dose 1,000 mg .ROUTE .STK-MED ONE Stop: 03/18/20 10:20 Last Admin: 03/18/20 13:06 Dose: 1,000 mg Documented by: Trazodone HCl (Trazodone) 100 mg PO BEDTIME [facility] Trazodone HCl (Trazodone) 50 mg PO ONETIME [facility] Stop: 03/18/20 21:46 Last Admin: 03/18/20 22:02 Dose: 50 mg Documented by: Vancomycin HCl (Vancomycin) Confirm Administered Dose 1 gm .ROUTE .STK-MED ONE Stop: 03/18/20 10:21 Last Admin: 03/18/20 13:03 Dose: 1 gm Documented by: - Exam Wound/Incisions: Dressing Dry and Intact General: Alert, Cooperative, No Acute Distress Lungs: Normal Respiratory Effort Extremities: Other (NVS intact for LLE. Leandro's negative for BLE. Independent SLR LLE.) Sepsis Event Note - Evaluation Sepsis Screening Result: No Definite Risk - Focused Exam Vital Signs: Vital Signs Temp Pulse Resp BP Pulse Ox 03/19/20 07:45 97.7 F 68 14 133/48 L 95 03/19/20 04:01 97.9 F 56 L 18 108/68 97 03/19/20 00:04 98.2 F 48 L 16 119/35 L 97 Date Exam was Performed: 03/19/20 Time Exam was Performed: 08:07 - Problem List Review Problem List Initiated/Reviewed/Updated: Yes - My Orders Last 24 Hours: Active Orders 24 hr Category Date Time Status Communication Order [RC] ASDIRECTED Care 03/19/20 08:06 Ordered Pulse Oximetry [RC] ASDIRECTED Care 03/18/20 12:54 Active Ready for Discharge [RC] PER UNIT ROUTINE Care 03/19/20 08:05 Ordered Vital Signs [RC] Q4HR Care 03/18/20 12:54 Active Regular Diet [DIET] Diet 03/18/20 Lunch Active Cholecalciferol (Vitamin D3) [Vitamin D3] Med 03/19/20 09:00 Active 5,000 unit PO DAILY Citalopram [Celexa] Med 03/19/20 09:00 Active 40 mg PO DAILY Docusate Sodium [Colace] Med 03/18/20 21:00 Active 100 mg PO BID Famotidine [Pepcid] Med 03/18/20 21:00 Active 20 mg PO Q12H Nicotine [Habitrol] Med 03/18/20 21:00 Active 14 mg TRDERM DAILY@2100 Remove Patch Med 03/18/20 21:00 Active 14 ea TRDERM DAILY@2100 Rivaroxaban [Xarelto] Med 03/19/20 09:00 Active 10 mg PO DAILY ceFAZolin [Ancef] 2 gm Med 03/18/20 20:00 Active Premix Bag 1 bag IV Q8H oxyCODONE Med 03/18/20 19:49 Active 15 mg PO Q6H PRN Medication Orders Bisacodyl (Dulcolax) 5 mg PO DAILY PRN PRN Reason: Constipation Cholecalciferol (Vitamin D3) 5,000 unit PO DAILY [facility] Citalopram Hydrobromide (Celexa) 40 mg PO DAILY [facility] Cyclobenzaprine HCl (Flexeril) 10 mg PO TID PRN PRN Reason: Spasms Last Admin: 03/19/20 03:49 Dose: 10 mg Documented by: Admin: 03/18/20 18:58 Dose: 10 mg Documented by: GODFREY Docusate Sodium (Colace) 100 mg PO BID [facility] Last Admin: 03/18/20 20:00 Dose: 100 mg Documented by: GODFREY Famotidine (Pepcid) 20 mg PO Q12H [facility] Last Admin: 03/18/20 20:00 Dose: 20 mg Documented by: GODFREY Cefazolin Sodium/Dextrose 2 gm (/ Premix) 50 mls @ 100 mls/hr IV Q8H [facility] Stop: 03/19/20 12:29 Last Admin: 03/19/20 03:49 Dose: 100 mls/hr Documented by: Infusion: 03/18/20 20:30 Dose: 100 mls/hr Documented by: Admin: 03/18/20 20:00 Dose: 100 mls/hr Documented by: GODFREY Ketorolac Tromethamine (Toradol) 15 mg IVPUSH Q6H PRN PRN Reason: Pain Last Admin: 03/18/20 23:59 Dose: 15 mg Documented by: Admin: 03/18/20 18:06 Dose: 15 mg Documented by: ZEINAB Magnesium Hydroxide (Milk Of Magnesia) 30 ml PO BID PRN PRN Reason: Constipation Miscellaneous Information (Remove Patch) 14 ea TRDERM DAILY@2100 [facility] Last Admin: 03/18/20 21:48 Dose: Not Given Documented by: GODFREY Morphine Sulfate (Morphine) 2 mg IVPUSH Q2H PRN PRN Reason: Breakthrough Pain Last Admin: 03/19/20 00:45 Dose: 2 mg Documented by: GODFREY Naloxone HCl (Narcan) 0.1 mg IVPUSH Q5M PRN PRN Reason: Oversedation Nicotine (Habitrol) 14 mg TRDERM DAILY@2100 [facility] Last Admin: 03/18/20 20:01 Dose: 14 mg Documented by: GODFREY Ondansetron HCl (Zofran) 4 mg IVPUSH Q6H PRN PRN Reason: Nausea/Vomiting Oxycodone HCl (Oxycodone) 15 mg PO Q6H PRN PRN Reason: Pain Last Admin: 03/19/20 01:59 Dose: 15 mg Documented by: Admin: 03/18/20 19:59 Dose: 15 mg Documented by: GODFREY Rivaroxaban (Xarelto) 10 mg PO DAILY [facility] Senna (Senna) 8.6 mg PO BID PRN PRN Reason: Constipation Last Admin: 03/18/20 18:58 Dose: 8.6 mg Documented by: GODFREY - Assessment Assessment (Free Text/Narrative):: POD#1 - left TKA - Plan Plan (Free Text/Narrative):: 1. Hgb 12.3. 2. Xarelto 10mg PO daily (tobacco use and pt with inability to tolerate ASA), frequent mobility, TEDs. 3. Discharge to home today. 4. Outpatient therapy. 5. Oxycodone 15mg PO q 6 hours has been recommended by the pt's brush painter. The pt's case was discussed with Dr. Roca.
[2020-03-19] MEDS: Famotidine 20 MG Tab PO SCH (08:27)
[2020-03-19] MEDS: Docusate Sodium 100 MG Cap PO SCH (08:27)
[2020-03-19] MEDS ORDERED: Rivaroxaban 10 MG Tab PO SCH (09:00)
[2020-03-19] MEDS ORDERED: Cholecalciferol (Vitamin D3) 5,000 UNIT Tab PO SCH (09:00)
[2020-03-19] MEDS ORDERED: Citalopram 20 MG Tab PO SCH (09:00)
--- NOTE | 2020-03-19 09:00 | PCM.DCSUM1 ---
Discharge Summary - Hospital Course Brief History: Teetee is a 64 yo female who underwent left TKA with Dr. Roca on 03-18-2020. The procedure was completed under spinal anesthesia with sedation. A post-operative adductor canal block was provided. The pt tolerated the procedure well and was admitted to the Medical-Surgical Unit. Medical management was provided by the Hospitalist service. The pt's Hospital course was remarkable for need for close monitoring of O2 saturations. The pt was able to wean from use of O2 prior to Hospital discharge. The pt's Hgb on POD#1 was 12.3. On POD#1, Xarelto 10mg PO daily was initiated for VTE prophylaxis. SCDs and TEDs were also ordered. A Mepilex dressing was placed at the incision site at the time of surgery and remained clean and dry. The pt participated in P.T. and O.T. and progressed well. The pt was allowed to WBAT and used a FWW for mobility. On POD#1, the pt was deemed appropriate to discharge to home with her . - Discharge Data Discharge Date: 03/19/20 Discharge Disposition: Home, Self-Care 01 Condition: Good - Referral to Home Health Primary Care Physician: Daisy Ann PA-C - Patient Summary/Data Consults: Consultations 03/18/20 06:25 OT Evaluation and Treatment [CONS] Routine PT Evaluation and Treatment [CONS] Routine 03/18/20 06:26 Consult to Physician [CONS] Routine - Patient Instructions Diet: Usual Diet as Tolerated Activity: Apply Ice, As Tolerated, Elevate Extremity, Full Weight Bearing Driving: Do Not Drive Showering/Bathing: May Shower Wound/Incision Care: Keep Operative Site/Wound Site Clean and Dry, Do NOT Change Dressing Notify Provider of: Fever, Increased Pain, Swelling and Redness, Drainage, Nausea and/or Vomiting Other/Special Instructions: Please get up and moving around EVERY HOUR while awake. This helps to prevent blood clots. Please use your walker and have help with mobility as needed. Take a short walk in your home every hour while awake. Please take the Xarelto blood thinner medication daily as directed. At home, please complete the exercises that you learned during the Hospital stay. Schedule for physical therapy. Use the pain medication as needed. The medication may cause drowsiness and constipation. Contact your primary care provider for instructions if you are constipated. You may use a stool softener like docusate sodium or Colace 100mg twice daily and/or a laxative like Miralax daily for constipation. Increase your water and fiber intake while you are using the pain medication. Discontinue use of the pain medication as soon as able. Please do not use other medications that may cause drowsiness (other pain medications, anxiety pills, cold medications, sleeping pills, etc) while using the prescription pain medication. Do not use alcohol while using the pain medication. You may use acetaminophen or Tylenol for pain management, however, please ensure you are not using over 4000 mg or 4 grams of acetaminophen per day. At this time, please do not use ibuprofen (Motrin, Advil) or naproxen (Aleve) for pain management as you are using the Xarelto. When the Xarelto course is completed in 4 to 6 weeks, you could use ibuprofen or naproxen for pain management (if this is allowed by your primary care provider). Wear the CARLOS hose during the day and you may remove these at night. Elevate the limb to decrease swelling. Place ice to the area often. Place a towel between your skin and the blue pad. Use the incentive spirometer often. Take deep breaths throughout the day. Please keep the dressing in place until follow-up. Notify the Clinic if the dressing becomes saturated. Increase your protein intake while you are healing. Call the Clinic with questions or concerns - [phone] and leave a message for the nurse. - Discharge Plan *PRESCRIPTION DRUG MONITORING PROGRAM REVIEWED*: No *COPY OF PRESCRIPTION DRUG MONITORING REPORT IN PATIENT ROLAND: No Prescriptions/Med Rec: Cyclobenzaprine [Flexeril] 5 mg PO BID PRN #20 tablet PRN Reason: Spasms Nicotine [Habitrol] 14 mg TRDERM DAILY@2100 #10 patch oxyCODONE 15 mg PO Q6H PRN #60 tablet PRN Reason: Pain Rivaroxaban [Xarelto] 10 mg PO DAILY #30 tablet Home Medications: Home Meds traZODone 100 mg PO BEDTIME 07/31/15 [History] Cholecalciferol (Vitamin D3) [Vitamin D3] 5,000 unit PO DAILY 03/15/20 [History] EPINEPHrine [Epipen] 1 dose IM ONETIME PRN 03/15/20 [History] Escitalopram Oxalate 30 mg PO DAILY 03/15/20 [History] LORazepam [Lorazepam] 1 mg PO BID 03/15/20 [History] Cyclobenzaprine [Flexeril] 5 mg PO BID PRN #20 tablet 03/19/20 [Rx] Docusate Sodium [Colace] 100 mg PO BID cap 03/19/20 [Rx] Famotidine [Pepcid] 20 mg PO Q12H tablet 03/19/20 [Rx] Magnesium Hydroxide [Milk of Magnesia] 30 ml PO BID PRN cup 03/19/20 [Rx] Nicotine [Habitrol] 14 mg TRDERM DAILY@2100 #10 patch 03/19/20 [Rx] Remove Patch 14 ea TRDERM DAILY@2100 each 03/19/20 [Rx] Rivaroxaban [Xarelto] 10 mg PO DAILY #30 tablet 03/19/20 [Rx] Sennosides [Senna] 8.6 mg PO BID PRN tablet 03/19/20 [Rx] bisacodyL [Dulcolax] 5 mg PO DAILY PRN tablet 03/19/20 [Rx] oxyCODONE 15 mg PO Q6H PRN #60 tablet 03/19/20 [Rx] Patient Handouts: Total Knee Replacement, [id number], Steps to Quit Smoking Referrals: Esha Kulkarni PA-C [Physician Trade Specialist] - (1. Follow-up with VENTURA Petersen on Thursday, March 26, 2020 at 1:15pm. 2. Follow-up with on Thursday, April 02, 2020 at 1:15pm. 3. Follow-up with VENTURA Petersen on Thursday, April 30, 2020 at 1:15pm.) - Discharge Summary/Plan Comment DC Time >30 min.: No - Patient Data Vitals - Most Recent: Last Vital Signs Temp 97.7 F 03/19/20 07:45 Pulse 68 03/19/20 07:45 Resp 14 03/19/20 07:45 BP 133/48 L 03/19/20 07:45 Pulse Ox 95 03/19/20 07:45 Weight - Most Recent: 149 lb 8 oz I&O - Last 24 hours: Intake & Output 03/18/20 03/19/20 03/19/20 22:59 06:59 14:59 Intake Total 300 1500 Output Total 3 Balance 300 1497 Lab Results - Last 24 hrs: Laboratory Results - last 24 hr 03/19/20 03/19/20 Range/Units 05:20 05:20 WBC 14.77 H (3.98-10.04) K/mm3 RBC 3.95 L (3.98-5.22) M/mm3 Hgb 12.3 D (11.2-15.7) gm/dl Hct 38.4 (34.1-44.9) % MCV 97.2 H (79.4-94.8) fl MCH 31.1 (25.6-32.2) pg MCHC 32.0 L (32.2-35.5) g/dl RDW Std Deviation 45.2 (36.4-46.3) fL Plt Count 209 (182-369) K/mm3 MPV 10.0 (9.4-12.3) fl Sodium 136 (136-145) mEq/L Potassium 4.3 (3.5-5.1) mEq/L Chloride 102 (98-107) mEq/L Carbon Dioxide 29 (21-32) mEq/L Anion Gap 9.3 (5-15) BUN 16 (7-18) mg/dL Creatinine 0.8 (0.55-1.02) mg/dL Est Cr Clr Drug Dosing 68.26 mL/min Estimated GFR (MDRD) > 60 (>60) mL/min BUN/Creatinine Ratio 20.0 H (14-18) Glucose 146 H (80-115) mg/dL Calcium 8.4 L (8.5-10.1) mg/dL Total Bilirubin 0.4 (0.2-1.0) mg/dL AST 17 (15-37) U/L ALT 17 (14-59) U/L Alkaline Phosphatase 60 (46-116) U/L Total Protein 5.9 L (6.4-8.2) g/dl Albumin 2.9 L (3.4-5.0) g/dl Globulin 3.0 gm/dL Albumin/Globulin Ratio 1.0 (1-2) Med Orders - Current: Current Medications Bisacodyl (Dulcolax) 5 mg PO DAILY PRN PRN Reason: Constipation Cholecalciferol (Vitamin D3) 5,000 unit PO DAILY [facility] Last Admin: 03/19/20 08:27 Dose: 5,000 unit Documented by: Citalopram Hydrobromide (Celexa) 40 mg PO DAILY [facility] Last Admin: 03/19/20 08:28 Dose: 40 mg Documented by: Cyclobenzaprine HCl (Flexeril) 10 mg PO TID PRN PRN Reason: Spasms Last Admin: 03/19/20 03:49 Dose: 10 mg Documented by: Docusate Sodium (Colace) 100 mg PO BID [facility] Last Admin: 03/19/20 08:27 Dose: 100 mg Documented by: Famotidine (Pepcid) 20 mg PO Q12H [facility] Last Admin: 03/19/20 08:27 Dose: 20 mg Documented by: Cefazolin Sodium/Dextrose 2 gm (/ Premix) 50 mls @ 100 mls/hr IV Q8H [facility] Stop: 03/19/20 12:29 Last Admin: 03/19/20 03:49 Dose: 100 mls/hr Documented by: Ketorolac Tromethamine (Toradol) 15 mg IVPUSH Q6H PRN PRN Reason: Pain Last Admin: 03/18/20 23:59 Dose: 15 mg Documented by: Magnesium Hydroxide (Milk Of Magnesia) 30 ml PO BID PRN PRN Reason: Constipation Miscellaneous Information (Remove Patch) 14 ea TRDERM DAILY@2100 [facility] Last Admin: 03/18/20 21:48 Dose: Not Given Documented by: Morphine Sulfate (Morphine) 2 mg IVPUSH Q2H PRN PRN Reason: Breakthrough Pain Last Admin: 03/19/20 00:45 Dose: 2 mg Documented by: Naloxone HCl (Narcan) 0.1 mg IVPUSH Q5M PRN PRN Reason: Oversedation Nicotine (Habitrol) 14 mg TRDERM DAILY@2100 [facility] Last Admin: 03/18/20 20:01 Dose: 14 mg Documented by: Ondansetron HCl (Zofran) 4 mg IVPUSH Q6H PRN PRN Reason: Nausea/Vomiting Oxycodone HCl (Oxycodone) 15 mg PO Q6H PRN PRN Reason: Pain Last Admin: 03/19/20 08:26 Dose: 15 mg Documented by: Rivaroxaban (Xarelto) 10 mg PO DAILY [facility] Last Admin: 03/19/20 08:26 Dose: 10 mg Documented by: Senna (Senna) 8.6 mg PO BID PRN PRN Reason: Constipation Last Admin: 03/18/20 18:58 Dose: 8.6 mg Documented by: Discontinued Medications Acetaminophen (Tylenol) 975 mg PO ONETIME [facility] Last Admin: 03/18/20 10:22 Dose: 975 mg Documented by: Aspirin (Ecotrin) 325 mg PO BID [facility] Bupivacaine HCl (Sensorcaine-Mpf 0.25%) Confirm Administered Dose 30 ml .ROUTE .STK-MED ONE Stop: 03/18/20 10:21 Last Admin: 03/18/20 13:00 Dose: 30 ml Documented by: Bupivacaine HCl (Sensorcaine-Mpf 0.75%) Confirm Administered Dose 30 ml .ROUTE .STK-MED ONE Stop: 03/18/20 11:37 Cefazolin Sodium (Ancef) Confirm Administered Dose 2 gm .ROUTE .STK-MED ONE Stop: 03/18/20 10:21 Last Admin: 03/18/20 12:56 Dose: 2 gm Documented by: Cefazolin Sodium (Ancef) Confirm Administered Dose 2 gm .ROUTE .STK-MED ONE Stop: 03/18/20 11:48 Morphine Sulfate 8 mg/Epinephrine HCl 0.3 mg/Cefuroxime Sodium 750 mg/Ketorolac Tromethamine 30 mg/Sodium Chloride 7.9 ml 0 mg .XX ASDIRECTED PRN PRN Reason: Pain Stop: 03/18/20 23:00 Last Admin: 03/18/20 13:00 Dose: 788.3 mg Documented by: Dexamethasone (Dexamethasone) Confirm Administered Dose 20 mg .ROUTE .STK-MED ONE Stop: 03/18/20 12:51 Fentanyl (Sublimaze) 100 mcg IVPUSH ONETIME PRN PRN Reason: Pain Stop: 03/18/20 15:30 Hydromorphone HCl (Dilaudid) 0.5 mg IVPUSH ONETIME PRN PRN Reason: Pain (severe 7-10) Stop: 03/18/20 15:30 Lactated Ringer's (Ringers, Lactated) 1,000 mls @ 125 mls/hr IV ASDIRECTED [facility] Stop: 03/11/20 23:00 Lactated Ringer's (Ringers, Lactated) 1,000 mls @ 125 mls/hr IV ASDIRECTED [facility] Stop: 03/18/20 23:00 Last Admin: 03/18/20 10:23 Dose: 125 mls/hr Documented by: Lidocaine HCl (Xylocaine-Mpf 1%) Confirm Administered Dose 4 mls @ as directed .ROUTE .STK-MED ONE Stop: 03/18/20 11:26 Lactated Ringer's (Ringers, Lactated) Confirm Administered Dose 1,000 mls @ as directed .ROUTE .STK-MED ONE Stop: 03/18/20 11:48 Iodine (Iodine 2% Mild Tincture) Confirm Administered Dose 30 ml .ROUTE .STK-MED ONE Stop: 03/18/20 10:21 Last Admin: 03/18/20 12:55 Dose: 18 ml Documented by: Lidocaine/Sodium Bicarbonate (Buffered Lidocaine 1% In Ns 8.4%) 0.25 ml IDERM ONETIME PRN PRN Reason: Prior to IV Start Stop: 03/11/20 18:00 Lidocaine/Sodium Bicarbonate (Buffered Lidocaine 1% In Ns 8.4%) 0.25 ml IDERM ONETIME PRN PRN Reason: Prior to IV Start Stop: 03/18/20 18:00 Midazolam HCl (Versed 1 Mg/Ml) Confirm Administered Dose 2 mg .ROUTE .STK-MED ONE Stop: 03/18/20 11:26 Miscellaneous Information (Remove Patch) 14 ea TRDERM DAILY@1430 [facility] Last Admin: 03/18/20 18:28 Dose: Not Given Documented by: Nicotine (Habitrol) 14 mg TRDERM DAILY@[id number] [facility] Last Admin: 03/18/20 18:28 Dose: Not Given Documented by: Oxycodone HCl (Oxycontin) 10 mg PO ONETIME [facility] Last Admin: 03/18/20 10:23 Dose: 10 mg Documented by: Oxycodone HCl (Oxycodone) 15 mg PO Q6H PRN PRN Reason: Pain Pregabalin (Lyrica) 50 mg PO ONETIME [facility] Last Admin: 03/18/20 10:23 Dose: 50 mg Documented by: Propofol (Diprivan 20 Ml) Confirm Administered Dose 600 mg .ROUTE .STK-MED ONE Stop: 03/18/20 11:25 Scopolamine (Transderm-Scop) 1.5 mg TOP ONETIME [facility] Stop: 03/18/20 14:00 Last Admin: 03/18/20 10:24 Dose: 1.5 mg Documented by: Sodium Chloride (Saline Flush) 10 ml FLUSH ASDIRECTED PRN PRN Reason: Keep Vein Open Stop: 03/11/20 18:00 Sodium Chloride (Saline Flush) 10 ml FLUSH ASDIRECTED PRN PRN Reason: Keep Vein Open Stop: 03/18/20 18:00 Tranexamic Acid (Cyklokapron) Confirm Administered Dose 1,000 mg .ROUTE .STK-MED ONE Stop: 03/18/20 10:20 Last Admin: 03/18/20 13:06 Dose: 1,000 mg Documented by: Trazodone HCl (Trazodone) 100 mg PO BEDTIME PAL Trazodone HCl (Trazodone) 50 mg PO ONETIME ONE Stop: 03/18/20 21:46 Last Admin: 03/18/20 22:02 Dose: 50 mg Documented by: Vancomycin HCl (Vancomycin) Confirm Administered Dose 1 gm .ROUTE .STK-MED ONE Stop: 03/18/20 10:21 Last Admin: 03/18/20 13:03 Dose: 1 gm Documented by:
--- NOTE | 2020-03-19 12:33 | PCM48HPAN ---
Post Anesthesia Note - EVALUATION WITHIN 48HRS OF ANESTHETIC Vital Signs in Normal Range: Yes Patient Participated in Evaluation: Yes Respiratory Function Stable: Yes Airway Patent: Yes Cardiovascular Function Stable: Yes Hydration Status Stable: Yes Pain Control Satisfactory: Yes Nausea and Vomiting Control Satisfactory: Yes Mental Status Recovered: Yes Vital Signs: Last Vital Signs Temp 36.5 C 03/19/20 07:45 Pulse 68 03/19/20 07:45 Resp 14 03/19/20 07:45 BP 133/48 L 03/19/20 07:45 Pulse Ox 95 03/19/20 07:45
[2020-03-19 12:35] VITALS: BP 98/54; PULSE 70
--- NOTE | 2020-03-25 07:31 | PCM.OPNOTE ---
- General Post-Op/Procedure Note Date of Surgery/Procedure: 03/18/20 Operative Procedure(s): left total knee arthroplasty Pre Op Diagnosis: left knee osteoarthrosis Post-Op Diagnosis: Same Anesthesia Technique: Local, MAC, Spinal Primary Surgeon: Kian Roca Anesthesia Provider: German Garcia Injection Molding Machine Tender: Esha Kulkarni Injection Molding Machine Tender: Nancy Lujan in mLs: 5 Complications: None Condition: Good Free Text/Narrative:: 4/4 10mm 32x10
--- NOTE | 2020-03-25 08:21 | OR ---
DATE OF OPERATION: 03/18/2020 SURGEON: Kian Roca MD OPERATION PERFORMED: Left total knee arthroplasty. PREOPERATIVE DIAGNOSIS: Left knee osteoarthrosis. POSTOPERATIVE DIAGNOSIS: Left knee osteoarthrosis. ANESTHESIA: Local MAC with spinal. ANESTHESIA PROVIDER: Jeannie Edge. MATCHBOOK MAKER: Esha Kulkarni PA-C and Nancy Lujan LPN. ESTIMATED BLOOD LOSS: 5 mL. COMPLICATIONS: None. CONDITION: Stable. IMPLANTS: 1. Campos size 4 cemented PS femur. 2. Reserve size 4 cemented [place] tibial baseplate. 3. Reserve size 4 10 mm PS X3 polyethylene. 4. Campos size 32 x 10 mm cemented asymmetric patella. DESCRIPTION OF PROCEDURE: The patient was identified in the preop holding area. Proper site was marked and identified by the surgeon. The patient was taken back to the operating theater. After adequate anesthesia, the patient's left lower extremity had a nonsterile tourniquet applied and it was sterilely prepped and draped in the usual sterile fashion. OR time-out was performed. The patient received 2 g IV Ancef. At this time, the left lower extremity was exsanguinated. Tourniquet was insufflated to 300 mmHg. Standard medial parapatellar incision was made. Medial parapatellar arthrotomy was created. Deep fibers of the MCL were raised and anterior fat pad was resected. At this time, attention was turned to the patella. Patella measured 24, it was resected to a 14 for a 32 x 10 mm patella. Drill holes were then drilled and found to be in adequate position. The drill was then drilled in the distal femur and the intramedullary distal femoral cutting guide was then placed. 8 mm was resected off the distal femur and was found to be an adequate resection. Sizing guide was placed. It was found to be a size 4 cemented PS femur that was shown on the implant record at the beginning of this dictation. The drill holes were drilled for the epicondylar axis using Whitesides line and epicondyles as reference. At this time, the 4-in-1 cutting block was placed. An anterior posterior and anterior and posterior chamfer cuts were then completed. Box cut was completed at this time. Attention was turned to the tibia. The posterior medial lateral retractors were placed. The extramedullary tibial guide was placed. It was placed in the old footprint of the ACL. It was aligned with the center of the ankle and 0 degrees of slope, 9 mm was then resected off the unaffected side. There was found to be an acceptable reduction. At this time, posterior osteophytes were removed along with medial and lateral meniscus. A trial implant was placed with a correct sized tibia that was mentioned at the beginning of the dictation. A Reserve size 4 10 mm PS X3 polyethylene insert was then placed. The patient's knee was brought through range of motion. The patella was tracking centrally and was stable to varus and valgus stress. Alignment was found to be roughly at 0 degrees. The tibia was stamped and drilled in proper rotation. The universal tibial base plate was impacted in place. Next, the Campos size 4 cemented PS femur impacted into place and the Campos size 4 10 mm PS X3 polyethylene insert was placed. The patient's knee was brought into full extension. The patella was then cemented in place at this time. One liter dilute Betadine solution was irrigated through the knee along with 3 L of pulse lavage irrigation with Ancef. Periarticular injection was then completed. The patient's knee was brought through a range of motion. Once the cement had time to set up and it was found to be stable to varus valgus stress, the patella was tracking centrally with full range of motion. At this time, a #2 barbed suture was used for closure of the medial parapatellar arthrotomy. Topical tranexamic acid was placed. 2-0 Vicryl was used subcutaneously, Prineo was used for the skin. The patient tolerated the procedure well and was sent to the PACU in stable condition. MMJERSON /[id number]
== END 2020-03-19 12:02 | disposition home or self-care (01) | DRG 470 ==
LOC: JD.SDS 09:57 → JD.MS 09:58 → JD.SDS 13:44
PROVIDERS: ADMIT Orthopaedic Surgery; ATTEND Orthopaedic Surgery
PROC: 0SRD0J9 Replacement of Left Knee Joint with Synthetic Substitute, Cemented, Open Approach (ICD-10-PCS; principal; 2020-03-18)
DX: M17.12 Unilateral primary osteoarthritis, left knee (principal); Z79.899 Other long term (current) drug therapy; F17.210 Nicotine dependence, cigarettes, uncomplicated; F41.9 Anxiety disorder, unspecified; G89.29 Other chronic pain; F32.9 Major depressive disorder, single episode, unspecified; K21.9 Gastro-esophageal reflux disease without esophagitis; M54.16 Radiculopathy, lumbar region; M54.2 Cervicalgia; K40.90 Unilateral inguinal hernia, without obstruction or gangrene, not specified as recurrent; L82.1 Other seborrheic keratosis; L57.0 Actinic keratosis; M25.512 Pain in left shoulder; H54.7 Unspecified visual loss; K44.9 Diaphragmatic hernia without obstruction or gangrene; M79.7 Fibromyalgia; I77.89 Other specified disorders of arteries and arterioles; M81.0 Age-related osteoporosis without current pathological fracture; R91.1 Solitary pulmonary nodule; Z11.59 Encounter for screening for other viral diseases; Z90.89 Acquired absence of other organs; Z90.49 Acquired absence of other specified parts of digestive tract; Z98.84 Bariatric surgery status; Z98.51 Tubal ligation status; Z88.1 Allergy status to other antibiotic agents; Z88.0 Allergy status to penicillin; Z91.09 Other allergy status, other than to drugs and biological substances; Z88.5 Allergy status to narcotic agent; Z88.8 Allergy status to other drugs, medicaments and biological substances
CPT/HCPCS: 01402; 36415; 64450; 73560-26-LT; 73560-LT; 80053; 85027; 94761; 97110-GP; 97116-GP; 97161-GP; 97165-GO; 99222; 99231; A9270-GY; C1713; C1776; J0171; J0690; J0697; J1100; J1885; J2001; J2250; J2270; J2704; J3370; J3490; J7120; U0002

== ENCOUNTER 2021-12-13 16:50 | Emergency (ER) | payer BC, MEDICARE ==
[2021-12-13 17:05] VITALS: BP 140/89; PULSE 124
== END 2021-12-13 20:03 | disposition home or self-care (01) ==
LOC: JD.ED 16:50
DX: G89.29 Other chronic pain (principal); M54.50 Low back pain, unspecified; Z88.0 Allergy status to penicillin; Z91.010 Allergy to peanuts; Z88.5 Allergy status to narcotic agent; Z88.1 Allergy status to other antibiotic agents
CPT/HCPCS: 99283

== ENCOUNTER → 2023-04-27 | Day surgery (SDC) | payer BC, MEDICARE ==
[~2023-04-27] MED LIST changes: -Acetaminophen 325 MG Tab PO SCH; +Albuterol 0.083% 2.5 MG/3 ML Neb Soln NEB ONE; -Bisacodyl 5 MG Tab PO PRN; -Lidocaine 1%/Sod Bicarbonate in NS 8.4% 1 ML Syringe IDERM PRN; -Magnesium Hydroxide 400 MG/5 ML Susp 30 ML Cup PO PRN; -Morphine 2 MG/ML SYRINGE IVPUSH PRN; -Naloxone 0.4 MG/ML SDV IVPUSH PRN; -Ondansetron 4 MG/2 ML SDV IVPUSH PRN; -Pregabalin 25 MG Cap PO SCH; -Sennosides 8.6 MG Tab PO PRN; +Sodium Chloride 0.9% 10 ML Syringe FLUSH SCH; -oxyCODONE ER 10 MG TAB.ER PO SCH
[2023-04-27 08:58] VITALS: BP 135/85; PULSE 95
== END ==
LOC: JD.SDS 07:56
PROVIDERS: ATTEND Specialist
DX: Z12.11 Encounter for screening for malignant neoplasm of colon (principal); Z53.9 Procedure and treatment not carried out, unspecified reason; F32.A Depression, unspecified; F41.9 Anxiety disorder, unspecified; M19.90 Unspecified osteoarthritis, unspecified site; M54.16 Radiculopathy, lumbar region; M79.7 Fibromyalgia; E11.9 Type 2 diabetes mellitus without complications; F17.210 Nicotine dependence, cigarettes, uncomplicated; Z91.041 Radiographic dye allergy status; Z91.040 Latex allergy status; Z88.0 Allergy status to penicillin; Z91.010 Allergy to peanuts; Z88.5 Allergy status to narcotic agent; Z88.1 Allergy status to other antibiotic agents; Z79.899 Other long term (current) drug therapy; Z79.891 Long term (current) use of opiate analgesic
CPT/HCPCS: 96360; 96361; J7120; J7620-GY

== ENCOUNTER 2024-02-07 18:22 | Emergency (ER) | payer BC, MEDICARE ==
[2024-02-07] MEDS: Sodium Chloride 0.9% 10 ML Syringe FLUSH PRN (19:11)
[2024-02-07] MEDS: Famotidine 20 MG/2 ML SDV IVPUSH ONE (19:12)
[2024-02-07] MEDS: Ondansetron 4 MG/2 ML SDV IVPUSH ONE (19:15)
[2024-02-07] MEDS: HYDROmorphone 0.5 MG/0.5 ML Syringe IVPUSH ONE ×2 (19:17→21:19)
[2024-02-07] MEDS: Sodium Chloride 0.9% 1,000 ML IV STA (19:20)
[2024-02-07 19:28] LABS: BASOPHILS ABSOLUTE AUTO 0.1 K/mm3 (0.0-0.2); BASOPHILS PERCENT AUTO 0.7 % (0.0-1.0); EOSINOPHILS ABSOLUTE AUTO 0.1 K/mm3 (0.0-0.4); HEMATOCRIT 45.9 % (37.0-47.0); HEMOGLOBIN 15.4 gm/dl (12.0-16.0); IMMATURE GRAN ABSOLUTE AUTO 0.04 K/mm3 (0.00-0.05); IMMATURE GRAN PERCENT AUTO 0.5 % (0.0-0.4); LYMPHOCYTES ABSOLUTE AUTO 2.2 K/mm3 (1.0-4.8); LYMPHOCYTES PERCENT AUTO 25.9 % (24.0-44.0); MEAN CORPUSCULAR HEMOGLOBIN 31.6 pg (28.0-32.0); MEAN CORPUSCULAR HGB CONC 33.6 g/dl (32.0-36.0); MEAN CORPUSCULAR VOLUME 94.1 fl (83.0-99.0); MEAN PLATELET VOLUME 9.4 fl (9.4-12.3); MONOCYTES ABSOLUTE AUTO 0.8 K/mm3 (0.0-0.8); MONOCYTES PERCENT AUTO 9.2 % (0.0-8.0); NEUTROPHILS ABSOLUTE AUTO 5.4 K/mm3 (1.8-7.7); NEUTROPHILS PERCENT AUTO 62.7 % (41.0-71.0); PLATELET COUNT,PLT 212 K/mm3 (150-400); RED BLOOD CELL COUNT 4.88 M/mm3 (4.10-5.30)
[2024-02-07 20:02] LABS: A/G RATIO 1.1 (1-2); ALBUMIN 3.4 g/dl (3.4-5.0); ANION GAP 10.8 (5-15); BILIRUBIN TOTAL 0.4 mg/dL (0.2-1.0); BUN/CREATININE RATIO 12.2 (14-18); C-REACTIVE PROTEIN 0.26 mg/dL (<0.30); CALCIUM 8.8 mg/dL (8.5-10.1); CREATININE 0.9 mg/dL (0.55-1.02); EST CRCL DRUG DOSING (CG) 57.56 mL/min; POTASSIUM,K 3.8 mEq/L (3.5-5.1); PROTEIN TOTAL,TP 6.4 g/dl (6.4-8.2)
[2024-02-07 22:55] LABS: APPEARANCE,URINE CLEAR (Clear); BILIRUBIN,URINE NEGATIVE (Negative); COLOR,URINE YELLOW (Yellow); GLUCOSE,URINE NEGATIVE (Negative); KETONES,URINE NEGATIVE (Negative); LEUKOCYTE ESTERASE,URINE NEGATIVE (Negative); NITRITE,URINE NEGATIVE (Negative); OCCULT BLOOD,URINE TRACE-LYSED (Negative); PROTEIN,URINE NEGATIVE (Negative); UROBILINOGEN,URINE 0.2 (0.2-1.0)
[2024-02-07 23:07] LABS: BACTERIA,URINE FEW /hpf (FEW); MUCUS,URINE FEW /hpf (FEW); SQUAMOUS EPITHELIAL CELLS,UR 0-5 /hpf (0-5); WBC,URINE 0-5 /hpf (0-5)
[2024-02-07 23:47] VITALS: BP 111/63; PULSE 78
== END 2024-02-07 23:44 | disposition home or self-care (01) ==
LOC: JD.ED 18:22
DX: R10.13 Epigastric pain (principal); J44.9 Chronic obstructive pulmonary disease, unspecified; K21.9 Gastro-esophageal reflux disease without esophagitis; E11.9 Type 2 diabetes mellitus without complications; F17.210 Nicotine dependence, cigarettes, uncomplicated; Z88.1 Allergy status to other antibiotic agents; Z88.5 Allergy status to narcotic agent; Z91.040 Latex allergy status; Z91.010 Allergy to peanuts; Z88.0 Allergy status to penicillin; Z91.041 Radiographic dye allergy status; Z79.899 Other long term (current) drug therapy
CPT/HCPCS: 36415; 74177; 80053; 81001; 83690; 84484; 85025; 86140; 93005; 96374; 96375; 96376; 99284; J1170; J2405; J3490; J7030

== ENCOUNTER 2024-02-29 06:48 | Day surgery (SDC) | payer BC, MEDICARE ==
[~2024-02-29 06:48] MED LIST changes: -Albuterol 0.083% 2.5 MG/3 ML Neb Soln NEB ONE; -Lactated Ringers 1,000 ML IV SCH
[2024-02-29] MEDS ORDERED: Lidocaine 2% 5 ML SDV ONE (07:35)
[2024-02-29] MEDS ORDERED: Phenylephrine 1% 10 MG/ML SDV ONE (07:35)
[2024-02-29] MEDS ORDERED: Sodium Chloride 0.9% 100 ML ONE (07:35)
[2024-02-29] MEDS ORDERED: Propofol 200 MG/20 ML SDV ONE (07:36)
[2024-02-29] MEDS ORDERED: Ondansetron 4 MG/2 ML SDV IVPUSH PRN (08:35)
[2024-02-29 09:13] VITALS: BP 117/64; PULSE 75
[2024-02-29] MEDS: Lactated Ringers 1,000 ML IV SCH (09:15)
== END 2024-02-29 09:00 | disposition home or self-care (01) ==
LOC: JD.SDS 06:48
PROVIDERS: ATTEND Surgery
DX: D12.0 Benign neoplasm of cecum (principal); D12.2 Benign neoplasm of ascending colon; D12.8 Benign neoplasm of rectum; K29.50 Unspecified chronic gastritis without bleeding; K57.30 Diverticulosis of large intestine without perforation or abscess without bleeding; K21.9 Gastro-esophageal reflux disease without esophagitis; E11.9 Type 2 diabetes mellitus without complications; F41.9 Anxiety disorder, unspecified; J44.9 Chronic obstructive pulmonary disease, unspecified; Z79.899 Other long term (current) drug therapy; Z88.0 Allergy status to penicillin; Z88.1 Allergy status to other antibiotic agents; Z88.5 Allergy status to narcotic agent
CPT/HCPCS: 43239; 45380; 45385; 88305; J2371; J2704; J3490; J7120; 00813

== ENCOUNTER 2025-07-25 16:37 | Emergency (ER) | payer MEDICARE, OTHER ==
[2025-07-25] MEDS ORDERED: Sodium Chloride 0.9% 10 ML Syringe FLUSH PRN (17:02)
[2025-07-25 17:18] LABS: BASOPHILS ABSOLUTE AUTO 0.1 K/mm3 (0.0-0.2); BASOPHILS PERCENT AUTO 1.0 % (0.0-1.0); EOSINOPHILS ABSOLUTE AUTO 0.2 K/mm3 (0.0-0.4); EOSINOPHILS PERCENT AUTO 2.2 % (0.0-6.0); IMMATURE GRAN ABSOLUTE AUTO 0.03 K/mm3 (0.00-0.05); IMMATURE GRAN PERCENT AUTO 0.3 % (0.0-0.4); LYMPHOCYTES ABSOLUTE AUTO 2.3 K/mm3 (1.0-4.8); LYMPHOCYTES PERCENT AUTO 26.4 % (24.0-44.0); MEAN PLATELET VOLUME 9.6 fl (9.4-12.3); MONOCYTES ABSOLUTE AUTO 0.8 K/mm3 (0.0-0.8); MONOCYTES PERCENT AUTO 9.5 % (0.0-8.0); NEUTROPHILS ABSOLUTE AUTO 5.3 K/mm3 (1.8-7.7); NEUTROPHILS PERCENT AUTO 60.6 % (41.0-71.0); NRBC ABSOLUTE 0.00 (0.00-0.02); NRBC PERCENT 0.0 % (0.0-0.2); PLATELET COUNT,PLT 222 K/mm3 (150-400); RED BLOOD CELL COUNT 4.87 M/mm3 (4.10-5.30); WHITE BLOOD CELL COUNT,WBC 8.74 K/mm3 (3.9-11.3)
[2025-07-25 17:19] LABS: APPEARANCE,URINE CLEAR (Clear); GLUCOSE,URINE NEGATIVE (Negative); OCCULT BLOOD,URINE 2+ (Negative)
[2025-07-25 17:32] LABS: EPITHELIAL CELLS,URINE 0-5 /hpf (0-5)
[2025-07-25 17:43] LABS: A/G RATIO 1.2 (1-2); ALANINE AMINOTRANSFERASE,ALT 16.0 U/L (14-59); ASPARTATE AMNIOTRANSFERASE,AST 14.0 U/L (15-37); BILIRUBIN TOTAL 0.5 mg/dL (0.2-1.0); BLOOD UREA NITROGEN,BUN 15.0 mg/dL (7-18); CARBON DIOXIDE,CO2 31.0 mEq/L (21-32); CHLORIDE,CL 102.0 mEq/L (98-107); CREATININE 0.7 mg/dL (0.55-1.02); EST CRCL DRUG DOSING (CG) 73.01 mL/min; ESTIMATED GFR 95.0 mL/min (>60); GLUCOSE RANDOM 107.0 mg/dL (70-99); POTASSIUM,K 4.3 mEq/L (3.5-5.1); PROTEIN TOTAL,TP 7.0 g/dl (6.4-8.2); SODIUM,NA 140.0 mEq/L (136-145)
[2025-07-25 17:45] LABS: LACTIC ACID 0.5 mmol/L (0.4-2.0)
[2025-07-25] MEDS: Levofloxacin/Dextrose 5%-Water 750 MG in Premix Bag 1 BAG IV ONE (18:21)
[2025-07-25 20:15] VITALS: BP 137/69; PULSE 76
== END 2025-07-25 20:12 | disposition home or self-care (01) ==
LOC: JD.ED 16:37
DX: N39.0 Urinary tract infection, site not specified (principal); J44.9 Chronic obstructive pulmonary disease, unspecified; K21.9 Gastro-esophageal reflux disease without esophagitis; E11.9 Type 2 diabetes mellitus without complications; F17.200 Nicotine dependence, unspecified, uncomplicated; Z86.16 Personal history of COVID-19; Z90.710 Acquired absence of both cervix and uterus; Z88.0 Allergy status to penicillin; Z91.010 Allergy to peanuts; Z79.899 Other long term (current) drug therapy; Z88.1 Allergy status to other antibiotic agents; Z88.5 Allergy status to narcotic agent; Z91.040 Latex allergy status
CPT/HCPCS: 36415; 74176; 80053; 81001; 83605; 83690; 85025; 96365; 96366; 99284; J1956; J7030